=== PATIENT | female | born 1945 | race Caucasian/White ===

== ENCOUNTER 2017-12-10 13:58 | Emergency (ER) | payer MEDICARE ==
[~2017-12-10] VITALS: Ht 154.9 cm; Wt 93.0 kg
[~2017-12-10 13:58] MED LIST: ALEN70TA48 PO; ATOR40TA71 PO; CHOL100046 PO; DILT180C PO; GLIM2TAB2 PO; IRBE150T27 PO; LEVO112T5 PO; METF500T7 PO; MILN50TA PO; NYSPWD TP; PIOG30TA27 PO; SOTA120T PO; WARF2TAB7 PO
[2017-12-10 13:59] VITALS: BP 159/79
== END 2017-12-10 15:53 | disposition home or self-care (01) ==
LOC: ER 13:58
DX: M79.605 Pain in left leg (principal); I25.10 Atherosclerotic heart disease of native coronary artery without angina pectoris; I48.91 Unspecified atrial fibrillation; J45.909 Unspecified asthma, uncomplicated; E78.00 Pure hypercholesterolemia, unspecified; I10 Essential (primary) hypertension; E11.9 Type 2 diabetes mellitus without complications; Z88.2 Allergy status to sulfonamides; Z88.0 Allergy status to penicillin; Z79.01 Long term (current) use of anticoagulants; Z79.84 Long term (current) use of oral hypoglycemic drugs; Z79.899 Other long term (current) drug therapy
CPT/HCPCS: 73630; 99284

== ENCOUNTER 2018-03-11 06:26 | Day surgery (SDC) | payer MEDICARE ==
[2018-03-10 11:41] LABS: BASOPHILS % (AUTO) 0.2 % (0-1); EOSINOPHILS # (AUTO) 0.1 X10'3 (0-0.9); EOSINOPHILS % (AUTO) 1.5 % (0-6); HEMATOCRIT 36.2 % (35.0-45.0); HEMOGLOBIN 11.9 g/dl (12.0-16.0); LYMPHOCYTES # (AUTO) 1.6 X10'3 (1.1-4.8); MEAN CORPUSCULAR HEMOGLOBIN 27.2 PG (27.0-31.0); MEAN CORPUSCULAR VOLUME 82.5 FL (78-98); MEAN PLATELET VOLUME 8.2 FL (7.4-10.4); MONOCYTES # (AUTO) 0.7 X10'3 (0-0.9); MONOCYTES % (AUTO) 8.1 % (2-12); NEUTROPHILS # (AUTO) 6.1 X10'3 (1.8-7.7); NEUTROPHILS % (AUTO) 71.2 % (42-75); PLATELET COUNT 297 X10'3 (140-440); RED BLOOD COUNT 4.38 X10'6 (4.20-5.60); RED CELL DISTRIBUTION WIDTH 16.7 % (11.5-14.5); WHITE BLOOD COUNT 8.6 X10'3 (4.5-11.0)
[2018-03-10 11:51] LABS: ALBUMIN 3.4 G/DL (3.4-5.0); ANION GAP 10 (8-16); BLOOD UREA NITROGEN 27 MG/DL (7-18); CALCIUM 9.5 MG/DL (8.5-10.1); CHLORIDE 104 MMOL/L (99-107); CREATININE 1.23 MG/DL (0.40-0.90); GLUCOSE 276 MG/DL (70-104); POTASSIUM 4.5 MMOL/L (3.5-5.1); SODIUM 139 MMOL/L (135-145); TOTAL CARBON DIOXIDE 25.3 MMOL/L (24-32); eGFR 43 ML/MIN
[2018-03-11] VITALS (14 sets, daily range): BP systolic 148–194; BP diastolic 55–139
[~2018-03-11] VITALS: Ht 154.9 cm; Wt 114.8 kg
[~2018-03-11 06:26] MED LIST changes: -PIOG30TA27 PO; +PIOG30TA71 PO; +WARF-65 PO; -WARF2TAB7 PO
[2018-03-11] MEDS ORDERED: MIDAZolam 5mg/ml 2ml vial IV ONE (06:45)
[2018-03-11] MEDS ORDERED: morphine 10mg/ml inj. IV ONE (06:45)
[2018-03-11] MEDS ORDERED: diphenhydrAMINE 25mg capsule PO ONE (06:45)
[2018-03-11] MEDS ORDERED: LORazepam 0.5 MG tablet PO ONE (06:45)
[2018-03-11] MEDS ORDERED: normal saline 1000ml 1,000 ML IV SCH (06:45)
[2018-03-11] MEDS ORDERED: PIOG30TA10 PO (07:52)
[2018-03-11] MEDS ORDERED: OMEP20TA23 PO (07:56)
== END 2018-03-11 11:40 | disposition home or self-care (01) ==
LOC: SSTAY O 06:26
PROVIDERS: ATTEND Internal Medicine Cardiovascular Disease
DX: I08.3 Combined rheumatic disorders of mitral, aortic and tricuspid valves (principal); I48.0 Paroxysmal atrial fibrillation; E78.5 Hyperlipidemia, unspecified; E11.9 Type 2 diabetes mellitus without complications; G47.33 Obstructive sleep apnea (adult) (pediatric); I11.0 Hypertensive heart disease with heart failure; I50.9 Heart failure, unspecified; I25.10 Atherosclerotic heart disease of native coronary artery without angina pectoris; E66.9 Obesity, unspecified; M19.90 Unspecified osteoarthritis, unspecified site; K21.9 Gastro-esophageal reflux disease without esophagitis; F32.9 Major depressive disorder, single episode, unspecified; J45.998 Other asthma; Z68.42 Body mass index [BMI] 45.0-49.9, adult; Z79.01 Long term (current) use of anticoagulants; Z90.49 Acquired absence of other specified parts of digestive tract; Z95.5 Presence of coronary angioplasty implant and graft; Z90.89 Acquired absence of other organs; Z90.710 Acquired absence of both cervix and uterus; Z79.84 Long term (current) use of oral hypoglycemic drugs; Z88.0 Allergy status to penicillin; Z88.2 Allergy status to sulfonamides; Z88.1 Allergy status to other antibiotic agents; Z87.891 Personal history of nicotine dependence; Z88.8 Allergy status to other drugs, medicaments and biological substances; Z79.899 Other long term (current) drug therapy; Z98.890 Other specified postprocedural states
CPT/HCPCS: 36415; 80048; 82948; 85025; 85610; 93005; 93312; J2250; J2270; J7030; A4620

== ENCOUNTER 2018-04-01 08:51 | Day surgery (SDC) | payer MEDICARE ==
[~2018-04-01 08:51] MED LIST changes: +OMEP20TA23 PO; +PIOG30TA10 PO; -PIOG30TA71 PO
[2018-04-01] MEDS ORDERED: AMIO200T40 PO (10:02)
[2018-04-01] MEDS ORDERED: INSU100C10 SQ (10:03)
[2018-04-01] MEDS ORDERED: LIDOcaine 2% 5ml jelly ONE ×2 (10:08→10:19)
== END 2018-04-01 11:00 | disposition home or self-care (01) ==
LOC: WOUND CARE 08:51
PROVIDERS: ATTEND Surgery
DX: T21.34XA Burn of third degree of lower back, initial encounter (principal); T21.23XA Burn of second degree of upper back, initial encounter; T31.0 Burns involving less than 10% of body surface; L98.492 Non-pressure chronic ulcer of skin of other sites with fat layer exposed; I25.10 Atherosclerotic heart disease of native coronary artery without angina pectoris; K21.9 Gastro-esophageal reflux disease without esophagitis; I11.0 Hypertensive heart disease with heart failure; I50.9 Heart failure, unspecified; E78.5 Hyperlipidemia, unspecified; E66.9 Obesity, unspecified; G47.33 Obstructive sleep apnea (adult) (pediatric); J45.998 Other asthma; I48.0 Paroxysmal atrial fibrillation; M19.90 Unspecified osteoarthritis, unspecified site; F32.9 Major depressive disorder, single episode, unspecified; Z90.710 Acquired absence of both cervix and uterus; Z90.89 Acquired absence of other organs; Z90.49 Acquired absence of other specified parts of digestive tract; Z68.42 Body mass index [BMI] 45.0-49.9, adult; Z79.01 Long term (current) use of anticoagulants; Z79.84 Long term (current) use of oral hypoglycemic drugs; Z79.899 Other long term (current) drug therapy; Z98.890 Other specified postprocedural states; Z87.891 Personal history of nicotine dependence; Z95.5 Presence of coronary angioplasty implant and graft; X08.8XXA Exposure to other specified smoke, fire and flames, initial encounter; Y93.89 Activity, other specified; Y92.89 Other specified places as the place of occurrence of the external cause; Y99.8 Other external cause status
CPT/HCPCS: 36416; 82948; 97597; A6021; A6196; A6212; A6213; A6222

== ENCOUNTER 2018-04-06 21:34 | Inpatient (IN) | payer MEDICARE ==
[~2018-04-06] VITALS: Ht 154.9 cm; Wt 112.5 kg
[~2018-04-06 21:34] MED LIST changes: +AMIO200T40 PO; +INSU100C10 SQ; +LEVO25TA2 PO; -SOTA120T PO; +SYN0.112T PO; -WARF-65 PO
[2018-04-06] MEDS ORDERED: cloNIDine 0.1 mg tablet PO ONE (21:55)
[2018-04-06 22:20] LABS: BASOPHILS % (AUTO) 0.4 % (0-1); EOSINOPHILS # (AUTO) 0.2 X10'3 (0-0.9); EOSINOPHILS % (AUTO) 2.5 % (0-6); HEMATOCRIT 30.7 % (35.0-45.0); HEMOGLOBIN 9.8 g/dl (12.0-16.0); LYMPHOCYTES # (AUTO) 1.2 X10'3 (1.1-4.8); LYMPHOCYTES % (AUTO) 15.9 % (21-51); MEAN CORPUSCULAR HEMOGLOBIN 26.5 PG (27.0-31.0); MEAN CORPUSCULAR HGB CONC 31.8 % (33.0-36.5); MEAN CORPUSCULAR VOLUME 83.2 FL (78-98); MEAN PLATELET VOLUME 6.8 FL (7.4-10.4); MONOCYTES % (AUTO) 13.2 % (2-12); PLATELET COUNT 351 X10'3 (140-440); RED BLOOD COUNT 3.69 X10'6 (4.20-5.60); RED CELL DISTRIBUTION WIDTH 18.3 % (11.5-14.5); WHITE BLOOD COUNT 7.3 X10'3 (4.5-11.0)
[2018-04-06 22:30] LABS: INR 1.1 INR; PARTIAL THROMBOPLASTIN TIME 24 SECONDS (22-32); PROTHROMBIN TIME 11.4 SECONDS (9.0-12.0)
[2018-04-06 22:37] LABS: ALANINE AMINOTRANSFERASE 35 U/L (12-78); ALBUMIN 2.9 G/DL (3.4-5.0); ALBUMIN/GLOBULIN RATIO 0.7 (1.1-1.5); ALKALINE PHOSPHATASE 99 IU/L (46-116); ANION GAP 11 (8-16); ASPARTATE AMINO TRANSFERASE 25 U/L (10-37); BILIRUBIN,TOTAL 0.6 MG/DL (0.1-1.0); BLOOD UREA NITROGEN 19 MG/DL (7-18); BUN/CREATININE RATIO 15.3 (6.6-38.0); CALCIUM 9.1 MG/DL (8.5-10.1); CHLORIDE 104 MMOL/L (99-107); CREATININE 1.24 MG/DL (0.40-0.90); GLUCOSE 139 MG/DL (70-104); POTASSIUM 4.1 MMOL/L (3.5-5.1); SODIUM 139 MMOL/L (135-145); TOTAL CARBON DIOXIDE 24.1 MMOL/L (24-32); TOTAL PROTEIN 6.9 G/DL (6.4-8.2); eGFR 43 ML/MIN
[2018-04-06] MEDS ORDERED: furosemide 20MG tablet PO ONE (22:55)
[2018-04-07] MEDS ORDERED: potassium Cl 20 mEq SR tablet PO PRN ×2 (01:25)
[2018-04-07] MEDS ORDERED: ondansetron/PF 4mg/2ml inj IV PRN (01:25)
[2018-04-07] MEDS ORDERED: MESSAGE TO PHARMACY PO ONE (01:25)
[2018-04-07] MEDS ORDERED: glucagon, human recombinant 1mg kit SUBCUT PRN (01:25)
[2018-04-07] MEDS ORDERED: magnesium hydroxide 30ml (MOM) UD suspension PO PRN (01:25)
[2018-04-07] MEDS ORDERED: dextrose 50%-water 50ml dispensing syringe IV PRN ×2 (01:25)
[2018-04-07] MEDS ORDERED: HYDROcodone/acetaminophen 5mg/325mg tablet PO PRN (01:25)
[2018-04-07] MEDS ORDERED: acetaminophen 325mg tablet PO PRN ×2 (01:25)
[2018-04-07] MEDS ORDERED: ipratropium/albuterol 3ml nebule NEB PRN (01:25)
[2018-04-07] MEDS ORDERED: magnesium 1gm/100ml D5W IVPB 100 ML IV PRN (01:25)
[2018-04-07] MEDS ORDERED: mag hydrox/Alum hydrox/simeth 30ml oral suspension PO PRN (01:25)
[2018-04-07] MEDS ORDERED: dextrose ORAL solution 15 GM/59 ML bottle PO PRN ×2 (01:25)
[2018-04-07] MEDS ORDERED: magnesium 4gm in 100ml NS 100 ML IV PRN (01:25)
[2018-04-07] MEDS ORDERED: HYDROcodone/acetaminophen 10/325mg tab PO PRN (01:25)
[2018-04-07] MEDS ORDERED: potassium Cl 40MEQ/NS 500ml 500 ML IV PRN ×2 (01:25)
[2018-04-07 01:55] LABS: HEMOGLOBIN A1C 9.2 % (4.5-6.2)
[2018-04-07 02:20] VITALS: BP 157/83
[2018-04-07 07:00] VITALS: BP 120/46
[2018-04-07] MEDS: atorvastatin 20mg tablet PO SCH (07:47)
[2018-04-07] MEDS: pantoprazole 40mg Tablet.DR PO SCH (07:47)
[2018-04-07] MEDS: vitamin D (cholecalciferol) 1,000 unit tablet PO SCH (07:47)
[2018-04-07] MEDS: losartan 50mg tablet PO SCH (07:47)
[2018-04-07] MEDS: diltiazem CD 180mg cap (once-daily) PO SCH ×2 (07:47→19:53)
[2018-04-07] MEDS: enoxaparin 40mg/0.4ml syringe SQ SCH (07:48)
[2018-04-07] MEDS ORDERED: amiodarone 200mg tablet PO SCH (08:00)
[2018-04-07] MEDS: K and/or MAG REPLACEMENT MC SCH (08:00)
[2018-04-07] MEDS: MILNACIPRAN HCL 50 MG TABLET PO SCH ×3 (08:00→22:00)
[2018-04-07] MEDS ORDERED: levoTHYROXINE 112mcg tablet PO SCH (08:00)
[2018-04-07] MEDS ORDERED: levoTHYROXINE 25mcg tablet PO SCH (08:00)
[2018-04-07 11:00] VITALS: BP 141/80
[2018-04-07] MEDS ORDERED: amiodarone 150mg/dext, iso-os 100 ML IV ONE (11:35)
[2018-04-07] MEDS: amiodarone 200mg tablet PO SCH ×2 (12:39→22:00)
[2018-04-07] MEDS: aspirin 325mg tablet, delayed-release (Ecotrin) PO SCH (13:30)
[2018-04-07] MEDS: furosemide 40mg/4ml inj IV SCH ×2 (13:50→19:53)
[2018-04-07] MEDS ORDERED: MILN50TA PO (14:25)
[2018-04-07 15:00] VITALS: BP 128/70
[2018-04-07] MEDS: ipratropium/albuterol 3ml nebule NEB SCH ×2 (15:08→20:55)
[2018-04-07] MEDS: methylPREDNISolone sod succ 125mg/2ml vial IV SCH ×2 (16:48→23:36)
[2018-04-07] MEDS: potassium Cl 20 mEq SR tablet PO SCH (16:49)
[2018-04-07 19:00] VITALS: BP 134/69
[2018-04-07] MEDS ORDERED: LORazepam 0.5 MG tablet PO PRN (19:40)
[2018-04-07] MEDS: insulin glargine (Lantus) pen - multi-dose SQ SCH (22:04)
[2018-04-07 23:00] VITALS: BP 147/83
[2018-04-08] MEDS: ipratropium/albuterol 3ml nebule NEB SCH ×2 (02:00→08:00)
[2018-04-08 03:00] VITALS: BP 127/68
[2018-04-08 05:47] LABS: BASOPHILS % (AUTO) 0 % (0-1); EOSINOPHILS # (AUTO) 0.1 X10'3 (0-0.9); EOSINOPHILS % (AUTO) 1.3 % (0-6); HEMATOCRIT 33.5 % (35.0-45.0); LYMPHOCYTES # (AUTO) 0.4 X10'3 (1.1-4.8); LYMPHOCYTES % (AUTO) 5.6 % (21-51); MEAN CORPUSCULAR HGB CONC 32.8 % (33.0-36.5); MEAN CORPUSCULAR VOLUME 82.4 FL (78-98); MEAN PLATELET VOLUME 7.1 FL (7.4-10.4); MONOCYTES # (AUTO) 0.1 X10'3 (0-0.9); MONOCYTES % (AUTO) 0.8 % (2-12); NEUTROPHILS # (AUTO) 5.8 X10'3 (1.8-7.7); NEUTROPHILS % (AUTO) 92.3 % (42-75); PLATELET COUNT 343 X10'3 (140-440); RED BLOOD COUNT 4.06 X10'6 (4.20-5.60); RED CELL DISTRIBUTION WIDTH 17.3 % (11.5-14.5); WHITE BLOOD COUNT 6.3 X10'3 (4.5-11.0)
[2018-04-08 05:50] LABS: ALANINE AMINOTRANSFERASE 36 U/L (12-78); ALBUMIN/GLOBULIN RATIO 0.7 (1.1-1.5); ALKALINE PHOSPHATASE 106 IU/L (46-116); ANION GAP 9 (8-16); ASPARTATE AMINO TRANSFERASE 23 U/L (10-37); BILIRUBIN,TOTAL 0.7 MG/DL (0.1-1.0); BLOOD UREA NITROGEN 17 MG/DL (7-18); BUN/CREATININE RATIO 13.7 (6.6-38.0); CALCIUM 9.1 MG/DL (8.5-10.1); CHLORIDE 100 MMOL/L (99-107); CHOLESTEROL 148 MG/DL (0-200); CREATININE 1.24 MG/DL (0.40-0.90); GLUCOSE 338 MG/DL (70-104); HDL CHOLESTEROL 75 MG/DL (35-60); LDL CHOLESTEROL 62 MG/DL (50-100); MAGNESIUM 1.6 MG/DL (1.5-2.4); POTASSIUM 3.7 MMOL/L (3.5-5.1); SODIUM 136 MMOL/L (135-145); TOTAL CARBON DIOXIDE 27.1 MMOL/L (24-32); TOTAL PROTEIN 7.5 G/DL (6.4-8.2); TRIGLYCERIDES 44 MG/DL (20-135); eGFR 43 ML/MIN
[2018-04-08 07:00] VITALS: BP 145/91
[2018-04-08] MEDS: furosemide 40mg/4ml inj IV SCH ×2 (07:14→19:16)
[2018-04-08] MEDS: MILNACIPRAN HCL 50 MG TABLET PO SCH ×3 (07:15→19:25)
[2018-04-08] MEDS: aspirin 325mg tablet, delayed-release (Ecotrin) PO SCH (07:15)
[2018-04-08] MEDS: diltiazem CD 180mg cap (once-daily) PO SCH (07:15)
[2018-04-08] MEDS: methylPREDNISolone sod succ 125mg/2ml vial IV SCH ×2 (07:15→19:17)
[2018-04-08] MEDS: enoxaparin 40mg/0.4ml syringe SQ SCH (07:15)
[2018-04-08] MEDS: pantoprazole 40mg Tablet.DR PO SCH (07:15)
[2018-04-08] MEDS: atorvastatin 20mg tablet PO SCH (07:16)
[2018-04-08] MEDS: amiodarone 200mg tablet PO SCH ×2 (07:16→19:17)
[2018-04-08] MEDS: vitamin D (cholecalciferol) 1,000 unit tablet PO SCH (07:16)
[2018-04-08] MEDS: potassium Cl 20 mEq SR tablet PO SCH ×2 (07:16→17:59)
[2018-04-08] MEDS: levoTHYROXINE 75mcg tablet PO SCH (07:16)
[2018-04-08] MEDS: losartan 50mg tablet PO SCH (07:16)
[2018-04-08] MEDS: K and/or MAG REPLACEMENT MC SCH (08:00)
[2018-04-08] MEDS: insulin Lispro (HumaLOG) vial - multi-dose SQ SCH ×4 (08:35→22:58)
[2018-04-08] MEDS: carVEDilol 12.5mg tablet PO SCH ×2 (10:49→19:19)
[2018-04-08 11:00] VITALS: BP 131/75
[2018-04-08] MEDS ORDERED: ipratropium/albuterol 3ml nebule NEB PRN (11:15)
[2018-04-08] MEDS ORDERED: polyethylene glycol 3350 17gm powd pack PO PRN ×2 (12:10→12:16)
[2018-04-08 15:00] VITALS: BP 120/60
[2018-04-08 19:00] VITALS: BP 133/78
[2018-04-08] MEDS: insulin glargine (Lantus) pen - multi-dose SQ SCH (22:59)
[2018-04-08 23:00] VITALS: BP 111/63
[2018-04-08] MEDS: apixaban 5mg tablet PO SCH (23:02)
[2018-04-09 03:00] VITALS: BP 117/66
[2018-04-09 06:00] VITALS: BP 118/66
[2018-04-09 06:03] LABS: BASOPHILS % (AUTO) 0 % (0-1); EOSINOPHILS % (AUTO) 0 % (0-6); HEMATOCRIT 31.7 % (35.0-45.0); HEMOGLOBIN 10.3 g/dl (12.0-16.0); LYMPHOCYTES # (AUTO) 0.5 X10'3 (1.1-4.8); LYMPHOCYTES % (AUTO) 3.3 % (21-51); MEAN CORPUSCULAR HEMOGLOBIN 26.8 PG (27.0-31.0); MEAN CORPUSCULAR HGB CONC 32.4 % (33.0-36.5); MEAN CORPUSCULAR VOLUME 82.6 FL (78-98); MEAN PLATELET VOLUME 7.1 FL (7.4-10.4); MONOCYTES # (AUTO) 0.5 X10'3 (0-0.9); MONOCYTES % (AUTO) 3.6 % (2-12); NEUTROPHILS % (AUTO) 93.1 % (42-75); PLATELET COUNT 331 X10'3 (140-440); RED BLOOD COUNT 3.84 X10'6 (4.20-5.60); RED CELL DISTRIBUTION WIDTH 17.1 % (11.5-14.5); WHITE BLOOD COUNT 15.1 X10'3 (4.5-11.0)
[2018-04-09 06:35] LABS: ALANINE AMINOTRANSFERASE 30 U/L (12-78); ALBUMIN/GLOBULIN RATIO 0.7 (1.1-1.5); ALKALINE PHOSPHATASE 92 IU/L (46-116); ANION GAP 8 (8-16); ASPARTATE AMINO TRANSFERASE 20 U/L (10-37); BILIRUBIN,TOTAL 0.5 MG/DL (0.1-1.0); BLOOD UREA NITROGEN 29 MG/DL (7-18); BUN/CREATININE RATIO 18.8 (6.6-38.0); CALCIUM 9.7 MG/DL (8.5-10.1); CHLORIDE 98 MMOL/L (99-107); CREATININE 1.54 MG/DL (0.40-0.90); GLUCOSE 322 MG/DL (70-104); MAGNESIUM 1.6 MG/DL (1.5-2.4); POTASSIUM 3.9 MMOL/L (3.5-5.1); SODIUM 135 MMOL/L (135-145); TOTAL CARBON DIOXIDE 28.6 MMOL/L (24-32); TOTAL PROTEIN 7.2 G/DL (6.4-8.2); eGFR 33 ML/MIN
[2018-04-09] MEDS: K and/or MAG REPLACEMENT MC SCH (08:00)
[2018-04-09] MEDS: insulin Lispro (HumaLOG) vial - multi-dose SQ SCH ×4 (09:31→22:18)
[2018-04-09] MEDS: atorvastatin 20mg tablet PO SCH (09:34)
[2018-04-09] MEDS: carVEDilol 12.5mg tablet PO SCH ×2 (09:34→20:18)
[2018-04-09] MEDS: aspirin 325mg tablet, delayed-release (Ecotrin) PO SCH (09:35)
[2018-04-09] MEDS: losartan 50mg tablet PO SCH (09:35)
[2018-04-09] MEDS: amiodarone 200mg tablet PO SCH ×2 (09:35→20:17)
[2018-04-09] MEDS: levoTHYROXINE 75mcg tablet PO SCH (09:36)
[2018-04-09] MEDS: vitamin D (cholecalciferol) 1,000 unit tablet PO SCH (09:37)
[2018-04-09] MEDS: pantoprazole 40mg Tablet.DR PO SCH (09:37)
[2018-04-09] MEDS: apixaban 5mg tablet PO SCH ×2 (09:38→20:18)
[2018-04-09] MEDS: potassium Cl 20 mEq SR tablet PO SCH ×2 (09:39→16:52)
[2018-04-09] MEDS: MILNACIPRAN HCL 50 MG TABLET PO SCH ×3 (09:39→20:19)
[2018-04-09] MEDS: methylPREDNISolone sod succ 125mg/2ml vial IV SCH (09:41)
[2018-04-09] MEDS: furosemide 40mg/4ml inj IV SCH (09:41)
[2018-04-09 11:00] VITALS: BP 116/61
[2018-04-09] MEDS: diltiazem CD 120mg capsule (once-daily) PO SCH (12:47)
[2018-04-09 15:00] VITALS: BP 115/70
[2018-04-09 19:00] VITALS: BP 135/47
[2018-04-09] MEDS: furosemide 20 MG/2 ML vial IV SCH (20:17)
[2018-04-09] MEDS ORDERED: insulin glargine (Lantus) pen - multi-dose SQ SCH (21:00)
[2018-04-09 23:00] VITALS: BP 121/63
[2018-04-10 03:00] VITALS: BP 124/67
[2018-04-10 05:47] LABS: BASOPHILS % (AUTO) 0 % (0-1); EOSINOPHILS % (AUTO) 0.2 % (0-6); HEMATOCRIT 33.2 % (35.0-45.0); LYMPHOCYTES # (AUTO) 0.5 X10'3 (1.1-4.8); LYMPHOCYTES % (AUTO) 3.2 % (21-51); MEAN CORPUSCULAR HEMOGLOBIN 27.2 PG (27.0-31.0); MEAN CORPUSCULAR HGB CONC 33.1 % (33.0-36.5); MEAN CORPUSCULAR VOLUME 82.1 FL (78-98); MEAN PLATELET VOLUME 7.5 FL (7.4-10.4); MONOCYTES # (AUTO) 0.6 X10'3 (0-0.9); MONOCYTES % (AUTO) 3.7 % (2-12); NEUTROPHILS # (AUTO) 14.8 X10'3 (1.8-7.7); NEUTROPHILS % (AUTO) 92.9 % (42-75); PLATELET COUNT 337 X10'3 (140-440); RED BLOOD COUNT 4.04 X10'6 (4.20-5.60); RED CELL DISTRIBUTION WIDTH 16.3 % (11.5-14.5); WHITE BLOOD COUNT 15.9 X10'3 (4.5-11.0)
[2018-04-10 06:00] VITALS: BP 117/66
[2018-04-10 06:54] LABS: ALANINE AMINOTRANSFERASE 34 U/L (12-78); ALBUMIN/GLOBULIN RATIO 0.7 (1.1-1.5); ALKALINE PHOSPHATASE 86 IU/L (46-116); ANION GAP 7 (8-16); ASPARTATE AMINO TRANSFERASE 21 U/L (10-37); BILIRUBIN,TOTAL 0.5 MG/DL (0.1-1.0); BLOOD UREA NITROGEN 41 MG/DL (7-18); CALCIUM 9.7 MG/DL (8.5-10.1); CHLORIDE 98 MMOL/L (99-107); CREATININE 1.78 MG/DL (0.40-0.90); GLUCOSE 273 MG/DL (70-104); MAGNESIUM 1.7 MG/DL (1.5-2.4); POTASSIUM 4.1 MMOL/L (3.5-5.1); SODIUM 134 MMOL/L (135-145); TOTAL CARBON DIOXIDE 29.5 MMOL/L (24-32); TOTAL PROTEIN 7.2 G/DL (6.4-8.2); eGFR 28 ML/MIN
[2018-04-10] MEDS: apixaban 5mg tablet PO SCH (07:57)
[2018-04-10] MEDS: atorvastatin 20mg tablet PO SCH (07:57)
[2018-04-10] MEDS: amiodarone 200mg tablet PO SCH (07:59)
[2018-04-10] MEDS: levoTHYROXINE 75mcg tablet PO SCH (07:59)
[2018-04-10] MEDS: K and/or MAG REPLACEMENT MC SCH (08:00)
[2018-04-10] MEDS ORDERED: aspirin 81mg tablet.DR PO SCH (08:00)
[2018-04-10] MEDS: pantoprazole 40mg Tablet.DR PO SCH (08:00)
[2018-04-10] MEDS: potassium Cl 20 mEq SR tablet PO SCH (08:00)
[2018-04-10] MEDS: diltiazem CD 120mg capsule (once-daily) PO SCH (08:00)
[2018-04-10] MEDS: carVEDilol 12.5mg tablet PO SCH (08:01)
[2018-04-10] MEDS: vitamin D (cholecalciferol) 1,000 unit tablet PO SCH (08:01)
[2018-04-10] MEDS: MILNACIPRAN HCL 50 MG TABLET PO SCH ×2 (08:02→12:36)
[2018-04-10] MEDS: furosemide 20 MG/2 ML vial IV SCH (08:02)
[2018-04-10] MEDS ORDERED: prednisone 10mg tablet PO SCH (08:30)
[2018-04-10] MEDS: insulin Lispro (HumaLOG) vial - multi-dose SQ SCH ×2 (09:13→13:21)
[2018-04-10] MEDS ORDERED: diltiazem CD 180mg cap (once-daily) PO SCH (12:15)
[2018-04-10] MEDS ORDERED: APIX5TAB3 PO (12:24)
[2018-04-10] MEDS ORDERED: DILT180C PO (12:24)
[2018-04-10] MEDS ORDERED: CARV-50 PO (12:24)
[2018-04-10] MEDS ORDERED: AMIO200T40 PO (12:24)
[2018-04-10] MEDS ORDERED: diltiazem SR 60mg capsule (twice daily) PO ONE (12:25)
[2018-04-10] MEDS ORDERED: PRED10TA23 PO (14:41)
[2018-04-11] MEDS ORDERED: diltiazem CD 180mg cap (once-daily) PO SCH (08:00)
== END 2018-04-10 15:35 | disposition home health service (06) | DRG 291 ==
LOC: ER 21:35 → ED HOLD 04-07 01:24 → PCU 3S 04-07 02:10
PROVIDERS: ADMIT Family Medicine; ATTEND Internal Medicine
DX: I11.0 Hypertensive heart disease with heart failure (principal); J96.01 Acute respiratory failure with hypoxia; J45.901 Unspecified asthma with (acute) exacerbation; Z68.42 Body mass index [BMI] 45.0-49.9, adult; E03.9 Hypothyroidism, unspecified; E78.00 Pure hypercholesterolemia, unspecified; E78.5 Hyperlipidemia, unspecified; G47.33 Obstructive sleep apnea (adult) (pediatric); I16.0 Hypertensive urgency; I25.10 Atherosclerotic heart disease of native coronary artery without angina pectoris; I48.0 Paroxysmal atrial fibrillation; I27.20 Pulmonary hypertension, unspecified; E66.9 Obesity, unspecified; M19.90 Unspecified osteoarthritis, unspecified site; I08.1 Rheumatic disorders of both mitral and tricuspid valves; I50.33 Acute on chronic diastolic (congestive) heart failure; E11.9 Type 2 diabetes mellitus without complications; M79.7 Fibromyalgia; M81.0 Age-related osteoporosis without current pathological fracture; T38.0X5A Adverse effect of glucocorticoids and synthetic analogues, initial encounter; Z95.5 Presence of coronary angioplasty implant and graft; Z90.49 Acquired absence of other specified parts of digestive tract; Z90.710 Acquired absence of both cervix and uterus; Z90.722 Acquired absence of ovaries, bilateral; Z79.01 Long term (current) use of anticoagulants; Z79.890 Hormone replacement therapy; Z79.84 Long term (current) use of oral hypoglycemic drugs; Z88.2 Allergy status to sulfonamides; Z88.0 Allergy status to penicillin; Z88.1 Allergy status to other antibiotic agents; Z88.8 Allergy status to other drugs, medicaments and biological substances; Z82.3 Family history of stroke; Z82.49 Family history of ischemic heart disease and other diseases of the circulatory system; Z83.3 Family history of diabetes mellitus; Y92.89 Other specified places as the place of occurrence of the external cause
CPT/HCPCS: 36415; 71045; 80053; 80061; 82948; 83036; 83735; 83880; 84145; 84443; 84484; 85025; 85610; 85730; 87070; 93005; 93306; 93970; 94640; 94760; 99285; A4649; A6196; A6212; A6222; A6257; A6258; A6449; J0282; J1650; J1815; J1940; J2930; J7030; J7512

== ENCOUNTER 2018-04-23 12:06 | Emergency (ER) | payer MEDICARE ==
[~2018-04-23] VITALS: Ht 154.9 cm; Wt 117.7 kg
[~2018-04-23 12:06] MED LIST changes: +APIX5TAB3 PO; +CARV-50 PO; -LEVO112T5 PO; -NYSPWD TP; +PRED10TA23 PO
[2018-04-23 12:20] VITALS: BP 126/96
== END 2018-04-23 14:45 | disposition home or self-care (01) ==
LOC: ER 12:07
DX: S92.352A Displaced fracture of fifth metatarsal bone, left foot, initial encounter for closed fracture (principal); R20.0 Anesthesia of skin; I48.91 Unspecified atrial fibrillation; I25.10 Atherosclerotic heart disease of native coronary artery without angina pectoris; E78.00 Pure hypercholesterolemia, unspecified; I10 Essential (primary) hypertension; J45.909 Unspecified asthma, uncomplicated; E11.9 Type 2 diabetes mellitus without complications; M79.7 Fibromyalgia; Z95.5 Presence of coronary angioplasty implant and graft; Z88.0 Allergy status to penicillin; Z88.2 Allergy status to sulfonamides; Z88.1 Allergy status to other antibiotic agents; Z79.899 Other long term (current) drug therapy; W19.XXXA Unspecified fall, initial encounter; Y93.89 Activity, other specified; Y92.89 Other specified places as the place of occurrence of the external cause; Y99.9 Unspecified external cause status
CPT/HCPCS: 73630; 93005; 99284; L3260; L4360

== ENCOUNTER 2018-05-12 11:34 | Emergency (ER) | payer MEDICARE ==
[~2018-05-12] VITALS: Ht 154.9 cm; Wt 120.9 kg
[~2018-05-12 11:34] MED LIST changes: -ALEN70TA48 PO; +HYDR-569 PO; -METF500T7 PO; -PRED10TA23 PO
[2018-05-12] MEDS ORDERED: ondansetron 4mg rapidly disintigrating tab PO ONE (12:35)
[2018-05-12] MEDS ORDERED: HYDROcodone/acetaminophen 5mg/325mg tablet PO ONE (12:35)
[2018-05-12] MEDS ORDERED: ketorolac trometh. 30mg/ml inj. IM ONE (12:35)
[2018-05-12 13:45] VITALS: BP 138/79
[2018-05-12] MEDS ORDERED: HYDR-3965 PO (14:07)
[2018-05-12] MEDS ORDERED: ONDA8TAB9 PO (14:07)
== END 2018-05-12 14:43 | disposition home or self-care (01) ==
LOC: ER 11:34
DX: G57.02 Lesion of sciatic nerve, left lower limb (principal); I48.91 Unspecified atrial fibrillation; I25.10 Atherosclerotic heart disease of native coronary artery without angina pectoris; E78.00 Pure hypercholesterolemia, unspecified; I10 Essential (primary) hypertension; J45.909 Unspecified asthma, uncomplicated; E11.9 Type 2 diabetes mellitus without complications; Z95.1 Presence of aortocoronary bypass graft; Z88.1 Allergy status to other antibiotic agents; Z88.0 Allergy status to penicillin; Z88.2 Allergy status to sulfonamides; Z88.8 Allergy status to other drugs, medicaments and biological substances
CPT/HCPCS: 73502; 93005; 96372; 99284; J1885

== ENCOUNTER 2018-05-20 16:51 | Emergency (ER) | payer MEDICARE ==
[~2018-05-20] VITALS: Ht 154.9 cm; Wt 123.0 kg
[~2018-05-20 16:51] MED LIST changes: +HYDR-3965 PO; +ONDA8TAB9 PO
[2018-05-20 17:47] LABS: BASOPHILS % (AUTO) 0.1 % (0-1); EOSINOPHILS # (AUTO) 0.1 X10'3 (0-0.9); EOSINOPHILS % (AUTO) 1.6 % (0-6); HEMOGLOBIN 8.7 g/dl (12.0-16.0); LYMPHOCYTES # (AUTO) 0.8 X10'3 (1.1-4.8); LYMPHOCYTES % (AUTO) 8.9 % (21-51); MEAN CORPUSCULAR HEMOGLOBIN 25.9 PG (27.0-31.0); MEAN CORPUSCULAR HGB CONC 32.3 % (33.0-36.5); MEAN PLATELET VOLUME 6.2 FL (7.4-10.4); MONOCYTES # (AUTO) 1.5 X10'3 (0-0.9); NEUTROPHILS # (AUTO) 6.7 X10'3 (1.8-7.7); NEUTROPHILS % (AUTO) 73.4 % (42-75); PLATELET COUNT 442 X10'3 (140-440); RED BLOOD COUNT 3.38 X10'6 (4.20-5.60); RED CELL DISTRIBUTION WIDTH 19.8 % (11.5-14.5); WHITE BLOOD COUNT 9.1 X10'3 (4.5-11.0)
[2018-05-20 17:55] LABS: INR 1.3 INR; PARTIAL THROMBOPLASTIN TIME 32 SECONDS (22-32); PROTHROMBIN TIME 13.2 SECONDS (9.0-12.0)
[2018-05-20 18:01] LABS: ALANINE AMINOTRANSFERASE 18 U/L (12-78); ALBUMIN 2.7 G/DL (3.4-5.0); ALBUMIN/GLOBULIN RATIO 0.6 (1.1-1.5); ALKALINE PHOSPHATASE 136 IU/L (46-116); ANION GAP 10 (8-16); ASPARTATE AMINO TRANSFERASE 26 U/L (10-37); BILIRUBIN,TOTAL 0.8 MG/DL (0.1-1.0); BLOOD UREA NITROGEN 45 MG/DL (7-18); BUN/CREATININE RATIO 18.8 (6.6-38.0); CHLORIDE 101 MMOL/L (99-107); GLUCOSE 199 MG/DL (70-104); POTASSIUM 5.3 MMOL/L (3.5-5.1); SODIUM 133 MMOL/L (135-145); TOTAL CARBON DIOXIDE 22.2 MMOL/L (24-32); TOTAL PROTEIN 7.1 G/DL (6.4-8.2); eGFR 20 ML/MIN
[2018-05-20 18:15] LABS: ANISOCYTOSIS 2+; BURR CELLS FEW; PLATELET ESTIMATE INCREASED; SCHISTOCYTES FEW
[2018-05-20 18:16] LABS: ACANTHOCYTES FEW
[2018-05-20] MEDS ORDERED: furosemide 20MG tablet PO ONE (18:35)
[2018-05-20 19:08] VITALS: BP 136/61
== END 2018-05-20 19:12 | disposition home or self-care (01) ==
LOC: ER 16:52
DX: I11.0 Hypertensive heart disease with heart failure (principal); I50.9 Heart failure, unspecified; I48.91 Unspecified atrial fibrillation; I25.10 Atherosclerotic heart disease of native coronary artery without angina pectoris; E78.00 Pure hypercholesterolemia, unspecified; J45.909 Unspecified asthma, uncomplicated; E11.9 Type 2 diabetes mellitus without complications; Z98.61 Coronary angioplasty status; Z88.0 Allergy status to penicillin; Z88.2 Allergy status to sulfonamides; Z88.1 Allergy status to other antibiotic agents; Z79.01 Long term (current) use of anticoagulants; Z79.899 Other long term (current) drug therapy
CPT/HCPCS: 36415; 71045; 80053; 84484; 85025; 85610; 85730; 93005; 99285

== ENCOUNTER 2018-05-22 21:57 | Inpatient (IN) | payer MEDICARE ==
[~2018-05-22] VITALS: Ht 154.9 cm; Wt 120.0 kg
[2018-05-22] MEDS ORDERED: ALEN40TA2 PO (22:16)
[2018-05-22] MEDS ORDERED: METF500T PO (22:16)
[2018-05-22 22:20] LABS: BASOPHILS % (AUTO) 0.3 % (0-1); EOSINOPHILS # (AUTO) 0.1 X10'3 (0-0.9); EOSINOPHILS % (AUTO) 1.4 % (0-6); HEMATOCRIT 28.1 % (35.0-45.0); LYMPHOCYTES # (AUTO) 1.3 X10'3 (1.1-4.8); LYMPHOCYTES % (AUTO) 14.1 % (21-51); MEAN CORPUSCULAR HEMOGLOBIN 25.4 PG (27.0-31.0); MEAN CORPUSCULAR VOLUME 79.4 FL (78-98); MONOCYTES # (AUTO) 1.3 X10'3 (0-0.9); MONOCYTES % (AUTO) 14.4 % (2-12); NEUTROPHILS # (AUTO) 6.5 X10'3 (1.8-7.7); NEUTROPHILS % (AUTO) 69.8 % (42-75); PLATELET COUNT 416 X10'3 (140-440); RED BLOOD COUNT 3.54 X10'6 (4.20-5.60); RED CELL DISTRIBUTION WIDTH 20.2 % (11.5-14.5); WHITE BLOOD COUNT 9.3 X10'3 (4.5-11.0)
[2018-05-22] MEDS ORDERED: diltiazem-NS 100mg/100ml 100 ML IV SCH (22:20)
[2018-05-22 22:32] LABS: INR 1.5 INR; PARTIAL THROMBOPLASTIN TIME 34 SECONDS (22-32); PROTHROMBIN TIME 15.1 SECONDS (9.0-12.0)
[2018-05-22 22:34] LABS: ALANINE AMINOTRANSFERASE 21 U/L (12-78); ALBUMIN 2.6 G/DL (3.4-5.0); ALBUMIN/GLOBULIN RATIO 0.6 (1.1-1.5); ALKALINE PHOSPHATASE 133 IU/L (46-116); ANION GAP 11 (8-16); ASPARTATE AMINO TRANSFERASE 25 U/L (10-37); BILIRUBIN,TOTAL 0.9 MG/DL (0.1-1.0); BLOOD UREA NITROGEN 33 MG/DL (7-18); BUN/CREATININE RATIO 16.8 (6.6-38.0); CALCIUM 8.9 MG/DL (8.5-10.1); CHLORIDE 103 MMOL/L (99-107); CREATININE 1.97 MG/DL (0.40-0.90); GLUCOSE 217 MG/DL (70-104); POTASSIUM 4.4 MMOL/L (3.5-5.1); SODIUM 136 MMOL/L (135-145); TOTAL CARBON DIOXIDE 21.8 MMOL/L (24-32); TOTAL PROTEIN 7.2 G/DL (6.4-8.2); eGFR 25 ML/MIN
[2018-05-22] MEDS ORDERED: diltiazem 5mg/ml 5ml inj. IV STA (22:34)
[2018-05-22] MEDS ORDERED: metoprolol tartrate 50mg tablet PO ONE (23:45)
[2018-05-23] VITALS (23 sets, daily range): BP systolic 88–135; BP diastolic 53–87
[2018-05-23] MEDS ORDERED: mag hydrox/Alum hydrox/simeth 30ml oral suspension PO PRN (00:30)
[2018-05-23] MEDS ORDERED: diphenhydrAMINE 25mg capsule PO PRN (00:30)
[2018-05-23] MEDS ORDERED: diphenhydrAMINE 50 mg/ml inj IV PRN (00:30)
[2018-05-23] MEDS ORDERED: metoclopramide 5 mg/ml inj IV PRN (00:30)
[2018-05-23] MEDS ORDERED: acetaminophen 325mg tablet PO PRN ×2 (00:30)
[2018-05-23] MEDS ORDERED: acetaminophen 650mg rectal suppository RC PRN (00:30)
[2018-05-23] MEDS ORDERED: magnesium hydroxide 30ml (MOM) UD suspension PO PRN (00:30)
[2018-05-23] MEDS ORDERED: ondansetron/PF 4mg/2ml inj IV PRN (00:30)
[2018-05-23] MEDS ORDERED: HYDROcodone/acetaminophen 10/325mg tab PO PRN (00:30)
[2018-05-23] MEDS ORDERED: HYDROmorphone 1 mg/ml syringe IV PRN ×2 (00:30)
[2018-05-23] MEDS ORDERED: morphine 2 MG/ML inj. syringe IV PRN ×2 (00:30)
[2018-05-23] MEDS ORDERED: dextrose ORAL solution 15 GM/59 ML bottle PO PRN ×2 (01:00)
[2018-05-23] MEDS ORDERED: glucagon, human recombinant 1mg kit SUBCUT PRN (01:00)
[2018-05-23] MEDS: diltiazem-NS 100mg/100ml 100 ML IV SCH ×5 (01:00→18:40)
[2018-05-23] MEDS ORDERED: dextrose 50%-water 50ml dispensing syringe IV PRN ×2 (01:00)
[2018-05-23] MEDS ORDERED: MESSAGE TO PHARMACY PO ONE (01:00)
[2018-05-23 01:51] LABS: HEMOGLOBIN A1C 8.9 % (4.5-6.2)
[2018-05-23] MEDS: MILNACIPRAN HCL 50 MG TABLET PO SCH ×3 (08:00→19:49)
[2018-05-23] MEDS ORDERED: ALENDRONATE SODIUM PO SCH (08:00)
[2018-05-23] MEDS: furosemide 10 MG/1 ML 10ml inj IV SCH (08:39)
[2018-05-23] MEDS: atorvastatin 20mg tablet PO SCH (08:40)
[2018-05-23] MEDS: pantoprazole 40mg Tablet.DR PO SCH (08:40)
[2018-05-23] MEDS: apixaban 5mg tablet PO SCH ×2 (08:41→19:48)
[2018-05-23] MEDS: docusate sod 100mg capsule PO SCH ×2 (08:41→19:47)
[2018-05-23] MEDS: levoTHYROXINE 25mcg tablet PO SCH (08:41)
[2018-05-23] MEDS: levoTHYROXINE 112mcg tablet PO SCH (08:41)
[2018-05-23] MEDS: amiodarone 200mg tablet PO SCH ×2 (08:43→19:48)
[2018-05-23] MEDS: losartan 50mg tablet PO SCH (08:54)
[2018-05-23] MEDS: insulin Lispro (HumaLOG) vial - multi-dose SQ SCH ×2 (09:57→18:59)
[2018-05-23] MEDS ORDERED: amiodarone 150mg/dext, iso-os 100 ML IV ONE ×2 (12:50→22:35)
[2018-05-23] MEDS: HYDROcodone/acetaminophen 5mg/325mg tablet PO PRN (19:48)
[2018-05-23] MEDS ORDERED: temazepam 15mg capsule PO PRN (21:00)
[2018-05-24] VITALS (27 sets, daily range): BP systolic 89–138; BP diastolic 45–97
[2018-05-24] MEDS: amiodarone/D5 360MG/200ML BAG 200 ML IV SCH ×4 (01:33→18:24)
[2018-05-24 05:36] LABS: BASOPHILS % (AUTO) 0 % (0-1); EOSINOPHILS # (AUTO) 0.3 X10'3 (0-0.9); EOSINOPHILS % (AUTO) 3.1 % (0-6); HEMATOCRIT 27.1 % (35.0-45.0); HEMOGLOBIN 8.7 g/dl (12.0-16.0); LYMPHOCYTES # (AUTO) 1.4 X10'3 (1.1-4.8); LYMPHOCYTES % (AUTO) 16.3 % (21-51); MEAN CORPUSCULAR HEMOGLOBIN 25.8 PG (27.0-31.0); MEAN CORPUSCULAR HGB CONC 32.3 % (33.0-36.5); MEAN CORPUSCULAR VOLUME 79.9 FL (78-98); MEAN PLATELET VOLUME 6.4 FL (7.4-10.4); MONOCYTES # (AUTO) 1.3 X10'3 (0-0.9); MONOCYTES % (AUTO) 15.7 % (2-12); NEUTROPHILS # (AUTO) 5.4 X10'3 (1.8-7.7); NEUTROPHILS % (AUTO) 64.9 % (42-75); PLATELET COUNT 395 X10'3 (140-440); RED BLOOD COUNT 3.39 X10'6 (4.20-5.60); WHITE BLOOD COUNT 8.3 X10'3 (4.5-11.0)
[2018-05-24 06:34] LABS: ALANINE AMINOTRANSFERASE 11 U/L (12-78); ALBUMIN 2.3 G/DL (3.4-5.0); ALBUMIN/GLOBULIN RATIO 0.5 (1.1-1.5); ALKALINE PHOSPHATASE 119 IU/L (46-116); ANION GAP 11 (8-16); ASPARTATE AMINO TRANSFERASE 18 U/L (10-37); BILIRUBIN,TOTAL 0.8 MG/DL (0.1-1.0); BLOOD UREA NITROGEN 30 MG/DL (7-18); BUN/CREATININE RATIO 15.6 (6.6-38.0); CALCIUM 8.7 MG/DL (8.5-10.1); CHLORIDE 104 MMOL/L (99-107); CHOL/HDL RATIO 3.3 (0.00-4.99); CHOLESTEROL 108 MG/DL (0-200); CREATININE 1.92 MG/DL (0.40-0.90); GLUCOSE 157 MG/DL (70-104); HDL CHOLESTEROL 33 MG/DL (35-60); LDL CHOLESTEROL 57 MG/DL (50-100); POTASSIUM 4.4 MMOL/L (3.5-5.1); SODIUM 139 MMOL/L (135-145); TOTAL CARBON DIOXIDE 23.6 MMOL/L (24-32); TOTAL PROTEIN 6.6 G/DL (6.4-8.2); TRIGLYCERIDES 62 MG/DL (20-135); eGFR 26 ML/MIN
[2018-05-24 06:48] LABS: ANISOCYTOSIS 2+; PLATELET ESTIMATE NORMAL
[2018-05-24 06:52] LABS: ELLIPTOCYTES 1+; MICROCYTOSIS 1+; POIKILOCYTOSIS 1+; POLYCHROMASIA 1+
[2018-05-24 06:53] LABS: BURR CELLS 1+
[2018-05-24] MEDS: losartan 50mg tablet PO SCH ×2 (08:00→08:27)
[2018-05-24] MEDS: furosemide 10 MG/1 ML 10ml inj IV SCH ×2 (08:13→19:48)
[2018-05-24] MEDS: MILNACIPRAN HCL 50 MG TABLET PO SCH ×3 (08:13→19:58)
[2018-05-24] MEDS: levoTHYROXINE 25mcg tablet PO SCH (08:13)
[2018-05-24] MEDS: atorvastatin 20mg tablet PO SCH (08:14)
[2018-05-24] MEDS: amiodarone 200mg tablet PO SCH ×2 (08:14→19:14)
[2018-05-24] MEDS: levoTHYROXINE 112mcg tablet PO SCH (08:14)
[2018-05-24] MEDS: pantoprazole 40mg Tablet.DR PO SCH (08:14)
[2018-05-24] MEDS: docusate sod 100mg capsule PO SCH ×2 (08:14→19:14)
[2018-05-24] MEDS: apixaban 5mg tablet PO SCH ×2 (08:14→19:14)
[2018-05-24] MEDS: insulin Lispro (HumaLOG) vial - multi-dose SQ SCH ×3 (10:00→19:13)
[2018-05-24] MEDS: HYDROcodone/acetaminophen 5mg/325mg tablet PO PRN (19:58)
[2018-05-25] VITALS (30 sets, daily range): BP systolic 94–130; BP diastolic 47–100
[2018-05-25] MEDS: amiodarone/D5 360MG/200ML BAG 200 ML IV SCH ×4 (01:41→19:37)
[2018-05-25 04:29] LABS: BASOPHILS % (AUTO) 0.2 % (0-1); EOSINOPHILS # (AUTO) 0.3 X10'3 (0-0.9); EOSINOPHILS % (AUTO) 3.4 % (0-6); HEMATOCRIT 27.7 % (35.0-45.0); HEMOGLOBIN 8.9 g/dl (12.0-16.0); LYMPHOCYTES # (AUTO) 1.5 X10'3 (1.1-4.8); MEAN CORPUSCULAR HEMOGLOBIN 25.9 PG (27.0-31.0); MEAN CORPUSCULAR HGB CONC 32.2 % (33.0-36.5); MEAN CORPUSCULAR VOLUME 80.4 FL (78-98); MEAN PLATELET VOLUME 6.3 FL (7.4-10.4); MONOCYTES # (AUTO) 1.5 X10'3 (0-0.9); MONOCYTES % (AUTO) 16.3 % (2-12); NEUTROPHILS # (AUTO) 5.8 X10'3 (1.8-7.7); NEUTROPHILS % (AUTO) 64.1 % (42-75); PLATELET COUNT 424 X10'3 (140-440); RED BLOOD COUNT 3.44 X10'6 (4.20-5.60); RED CELL DISTRIBUTION WIDTH 19.8 % (11.5-14.5); WHITE BLOOD COUNT 9.1 X10'3 (4.5-11.0)
[2018-05-25 04:50] LABS: ALANINE AMINOTRANSFERASE 18 U/L (12-78); ALBUMIN 2.2 G/DL (3.4-5.0); ALBUMIN/GLOBULIN RATIO 0.5 (1.1-1.5); ANION GAP 9 (8-16); ASPARTATE AMINO TRANSFERASE 22 U/L (10-37); BILIRUBIN,TOTAL 0.6 MG/DL (0.1-1.0); BLOOD UREA NITROGEN 32 MG/DL (7-18); CALCIUM 8.6 MG/DL (8.5-10.1); CHLORIDE 103 MMOL/L (99-107); CREATININE 2.13 MG/DL (0.40-0.90); GLUCOSE 156 MG/DL (70-104); POTASSIUM 4.5 MMOL/L (3.5-5.1); SODIUM 137 MMOL/L (135-145); TOTAL CARBON DIOXIDE 24.8 MMOL/L (24-32); TOTAL PROTEIN 6.5 G/DL (6.4-8.2); eGFR 23 ML/MIN
[2018-05-25 04:51] LABS: ALKALINE PHOSPHATASE 118 IU/L (46-116)
[2018-05-25 05:04] LABS: ANISOCYTOSIS 2+; PLATELET ESTIMATE NORMAL
[2018-05-25 05:06] LABS: ACANTHOCYTES 1+; POLYCHROMASIA FEW; TARGET CELLS FEW
[2018-05-25 05:08] LABS: BURR CELLS FEW; POIKILOCYTOSIS 1+
[2018-05-25] MEDS: furosemide 10 MG/1 ML 10ml inj IV SCH ×2 (08:00→19:37)
[2018-05-25 08:17] LABS: MAGNESIUM 1.6 MG/DL (1.5-2.4)
[2018-05-25] MEDS: MILNACIPRAN HCL 50 MG TABLET PO SCH ×3 (08:21→20:08)
[2018-05-25] MEDS: pantoprazole 40mg Tablet.DR PO SCH (08:21)
[2018-05-25] MEDS: docusate sod 100mg capsule PO SCH ×2 (08:21→19:36)
[2018-05-25] MEDS: levoTHYROXINE 25mcg tablet PO SCH (08:21)
[2018-05-25] MEDS: amiodarone 200mg tablet PO SCH ×2 (08:21→19:36)
[2018-05-25] MEDS: losartan 50mg tablet PO SCH (08:21)
[2018-05-25] MEDS: atorvastatin 20mg tablet PO SCH (08:21)
[2018-05-25] MEDS: apixaban 5mg tablet PO SCH ×2 (08:21→19:36)
[2018-05-25] MEDS: levoTHYROXINE 112mcg tablet PO SCH (08:21)
[2018-05-25 08:34] LABS: TRIIODOTHYRONINE (T3) 59 ng/dL (71-180)
[2018-05-25] MEDS ORDERED: morphine 10mg/ml inj. IV ONE ×2 (09:20→14:00)
[2018-05-25] MEDS ORDERED: MIDAZolam 1mg/ml 10ml vial IV ONE ×2 (09:20→14:00)
[2018-05-25] MEDS: insulin Lispro (HumaLOG) vial - multi-dose SQ SCH ×3 (10:06→19:51)
[2018-05-25] MEDS ORDERED: amiodarone 150mg/dext, iso-os 100 ML IV ONE (14:30)
[2018-05-25] MEDS ORDERED: diltiazem CD 180mg cap (once-daily) PO ONE (20:00)
[2018-05-26] MEDS: amiodarone/D5 360MG/200ML BAG 200 ML IV SCH ×4 (01:57→20:09)
[2018-05-26 03:00] VITALS: BP 123/60
[2018-05-26 05:51] LABS: BASOPHILS % (AUTO) 0.1 % (0-1); EOSINOPHILS # (AUTO) 0.3 X10'3 (0-0.9); EOSINOPHILS % (AUTO) 2.8 % (0-6); HEMATOCRIT 27.4 % (35.0-45.0); HEMOGLOBIN 8.8 g/dl (12.0-16.0); LYMPHOCYTES # (AUTO) 1.3 X10'3 (1.1-4.8); LYMPHOCYTES % (AUTO) 12.3 % (21-51); MEAN CORPUSCULAR HEMOGLOBIN 25.6 PG (27.0-31.0); MEAN CORPUSCULAR HGB CONC 32.3 % (33.0-36.5); MEAN CORPUSCULAR VOLUME 79.3 FL (78-98); MEAN PLATELET VOLUME 6.3 FL (7.4-10.4); MONOCYTES # (AUTO) 1.5 X10'3 (0-0.9); MONOCYTES % (AUTO) 14.2 % (2-12); NEUTROPHILS # (AUTO) 7.4 X10'3 (1.8-7.7); NEUTROPHILS % (AUTO) 70.6 % (42-75); PLATELET COUNT 402 X10'3 (140-440); RED BLOOD COUNT 3.45 X10'6 (4.20-5.60); RED CELL DISTRIBUTION WIDTH 20.1 % (11.5-14.5); WHITE BLOOD COUNT 10.5 X10'3 (4.5-11.0)
[2018-05-26 06:00] VITALS: BP 109/62
[2018-05-26 06:35] LABS: ALANINE AMINOTRANSFERASE 18 U/L (12-78); ALBUMIN 2.3 G/DL (3.4-5.0); ALBUMIN/GLOBULIN RATIO 0.5 (1.1-1.5); ALKALINE PHOSPHATASE 115 IU/L (46-116); ANION GAP 13 (8-16); ASPARTATE AMINO TRANSFERASE 24 U/L (10-37); BILIRUBIN,TOTAL 0.6 MG/DL (0.1-1.0); BLOOD UREA NITROGEN 36 MG/DL (7-18); BUN/CREATININE RATIO 14.7 (6.6-38.0); CHLORIDE 101 MMOL/L (99-107); CREATININE 2.45 MG/DL (0.40-0.90); GLUCOSE 115 MG/DL (70-104); POTASSIUM 4.2 MMOL/L (3.5-5.1); SODIUM 137 MMOL/L (135-145); TOTAL CARBON DIOXIDE 22.8 MMOL/L (24-32); TOTAL PROTEIN 6.6 G/DL (6.4-8.2); eGFR 19 ML/MIN
[2018-05-26 07:07] LABS: ANISOCYTOSIS 2+; PLATELET ESTIMATE NORMAL; POIKILOCYTOSIS 1+
[2018-05-26 07:08] LABS: ELLIPTOCYTES 1+; HYPOCHROMASIA 1+; MICROCYTOSIS 1+
[2018-05-26 07:09] LABS: BURR CELLS 1+
[2018-05-26] MEDS: MILNACIPRAN HCL 50 MG TABLET PO SCH ×3 (07:56→20:59)
[2018-05-26] MEDS: docusate sod 100mg capsule PO SCH ×2 (07:57→20:59)
[2018-05-26] MEDS: pantoprazole 40mg Tablet.DR PO SCH (07:57)
[2018-05-26] MEDS: furosemide 10 MG/1 ML 10ml inj IV SCH (07:57)
[2018-05-26] MEDS: atorvastatin 20mg tablet PO SCH (07:57)
[2018-05-26] MEDS: amiodarone 200mg tablet PO SCH ×2 (07:57→20:58)
[2018-05-26] MEDS: losartan 50mg tablet PO SCH (07:57)
[2018-05-26] MEDS: levoTHYROXINE 25mcg tablet PO SCH (07:57)
[2018-05-26] MEDS: diltiazem CD 180mg cap (once-daily) PO SCH (07:57)
[2018-05-26] MEDS: apixaban 5mg tablet PO SCH ×2 (07:57→20:59)
[2018-05-26] MEDS: levoTHYROXINE 112mcg tablet PO SCH (07:58)
[2018-05-26] MEDS: insulin Lispro (HumaLOG) vial - multi-dose SQ SCH ×2 (08:15→13:51)
[2018-05-26 11:00] VITALS: BP 110/62
[2018-05-26 15:00] VITALS: BP 117/57
[2018-05-26 19:00] VITALS: BP 109/58
[2018-05-26] MEDS ORDERED: metoprolol tartrate 1mg/ml inj IV PRN (19:20)
[2018-05-26] MEDS: furosemide 20 MG/2 ML vial IV SCH (20:59)
[2018-05-26 23:00] VITALS: BP 119/54
[2018-05-27] MEDS: amiodarone/D5 360MG/200ML BAG 200 ML IV SCH ×3 (02:13→13:12)
[2018-05-27 03:00] VITALS: BP 129/61
[2018-05-27 05:12] LABS: BASOPHILS % (AUTO) 0.5 % (0-1); EOSINOPHILS # (AUTO) 0.3 X10'3 (0-0.9); EOSINOPHILS % (AUTO) 3.6 % (0-6); HEMATOCRIT 27.7 % (35.0-45.0); LYMPHOCYTES # (AUTO) 1.3 X10'3 (1.1-4.8); LYMPHOCYTES % (AUTO) 13.3 % (21-51); MEAN CORPUSCULAR HEMOGLOBIN 25.5 PG (27.0-31.0); MEAN CORPUSCULAR HGB CONC 32.3 % (33.0-36.5); MEAN CORPUSCULAR VOLUME 78.8 FL (78-98); MEAN PLATELET VOLUME 6.5 FL (7.4-10.4); MONOCYTES # (AUTO) 1.5 X10'3 (0-0.9); MONOCYTES % (AUTO) 15.6 % (2-12); NEUTROPHILS # (AUTO) 6.4 X10'3 (1.8-7.7); PLATELET COUNT 439 X10'3 (140-440); RED BLOOD COUNT 3.52 X10'6 (4.20-5.60); RED CELL DISTRIBUTION WIDTH 19.8 % (11.5-14.5); WHITE BLOOD COUNT 9.6 X10'3 (4.5-11.0)
[2018-05-27 05:39] LABS: ALANINE AMINOTRANSFERASE 49 U/L (12-78); ALBUMIN 2.4 G/DL (3.4-5.0); ALBUMIN/GLOBULIN RATIO 0.5 (1.1-1.5); ALKALINE PHOSPHATASE 124 IU/L (46-116); ANION GAP 11 (8-16); ASPARTATE AMINO TRANSFERASE 25 U/L (10-37); BILIRUBIN,TOTAL 0.6 MG/DL (0.1-1.0); BLOOD UREA NITROGEN 40 MG/DL (7-18); BUN/CREATININE RATIO 16.5 (6.6-38.0); CALCIUM 8.8 MG/DL (8.5-10.1); CHLORIDE 100 MMOL/L (99-107); CREATININE 2.42 MG/DL (0.40-0.90); GLUCOSE 153 MG/DL (70-104); SODIUM 135 MMOL/L (135-145); TOTAL CARBON DIOXIDE 23.7 MMOL/L (24-32); eGFR 20 ML/MIN
[2018-05-27 07:00] VITALS: BP 113/52
[2018-05-27] MEDS: furosemide 20 MG/2 ML vial IV SCH (07:38)
[2018-05-27] MEDS: levoTHYROXINE 112mcg tablet PO SCH (07:38)
[2018-05-27] MEDS: atorvastatin 20mg tablet PO SCH (07:38)
[2018-05-27] MEDS: apixaban 5mg tablet PO SCH ×2 (07:38→20:18)
[2018-05-27] MEDS: amiodarone 200mg tablet PO SCH ×2 (07:38→20:19)
[2018-05-27] MEDS: MILNACIPRAN HCL 50 MG TABLET PO SCH ×3 (07:38→20:17)
[2018-05-27] MEDS: losartan 50mg tablet PO SCH (07:39)
[2018-05-27] MEDS: levoTHYROXINE 25mcg tablet PO SCH (07:39)
[2018-05-27] MEDS: diltiazem CD 180mg cap (once-daily) PO SCH (07:39)
[2018-05-27] MEDS: docusate sod 100mg capsule PO SCH ×2 (07:39→20:18)
[2018-05-27] MEDS: pantoprazole 40mg Tablet.DR PO SCH (07:39)
[2018-05-27] MEDS: insulin Lispro (HumaLOG) vial - multi-dose SQ SCH ×3 (08:08→19:01)
[2018-05-27 11:00] VITALS: BP 102/50
[2018-05-27 15:00] VITALS: BP 108/48
[2018-05-27 18:00] VITALS: BP 110/49
[2018-05-27] MEDS: metoprolol tartrate 25mg tablet PO SCH (20:21)
[2018-05-27 22:00] VITALS: BP 130/57
[2018-05-28 02:00] VITALS: BP 119/54
[2018-05-28] MEDS: HYDROcodone/acetaminophen 5mg/325mg tablet PO PRN ×2 (02:22→20:21)
[2018-05-28 06:14] LABS: ALANINE AMINOTRANSFERASE 19 U/L (12-78); ALBUMIN 2.3 G/DL (3.4-5.0); ALBUMIN/GLOBULIN RATIO 0.5 (1.1-1.5); ALKALINE PHOSPHATASE 110 IU/L (46-116); ANION GAP 11 (8-16); ASPARTATE AMINO TRANSFERASE 23 U/L (10-37); BILIRUBIN,TOTAL 0.7 MG/DL (0.1-1.0); BLOOD UREA NITROGEN 41 MG/DL (7-18); CALCIUM 8.9 MG/DL (8.5-10.1); CHLORIDE 101 MMOL/L (99-107); CREATININE 2.56 MG/DL (0.40-0.90); GLUCOSE 128 MG/DL (70-104); POTASSIUM 4.1 MMOL/L (3.5-5.1); SODIUM 137 MMOL/L (135-145); TOTAL CARBON DIOXIDE 25.1 MMOL/L (24-32); TOTAL PROTEIN 6.5 G/DL (6.4-8.2); eGFR 18 ML/MIN
[2018-05-28 06:31] LABS: BASOPHILS % (AUTO) 0.1 % (0-1); EOSINOPHILS # (AUTO) 0.3 X10'3 (0-0.9); EOSINOPHILS % (AUTO) 3.7 % (0-6); HEMATOCRIT 26.2 % (35.0-45.0); HEMOGLOBIN 8.2 g/dl (12.0-16.0); MEAN CORPUSCULAR HGB CONC 31.4 % (33.0-36.5); MEAN CORPUSCULAR VOLUME 79.5 FL (78-98); MEAN PLATELET VOLUME 6.7 FL (7.4-10.4); MONOCYTES # (AUTO) 1.4 X10'3 (0-0.9); MONOCYTES % (AUTO) 15.8 % (2-12); NEUTROPHILS % (AUTO) 69.4 % (42-75); PLATELET COUNT 379 X10'3 (140-440); RED BLOOD COUNT 3.29 X10'6 (4.20-5.60); RED CELL DISTRIBUTION WIDTH 19.7 % (11.5-14.5); WHITE BLOOD COUNT 8.6 X10'3 (4.5-11.0)
[2018-05-28 07:07] VITALS: BP 80/38
[2018-05-28 07:10] VITALS: BP 102/47
[2018-05-28] MEDS: MILNACIPRAN HCL 50 MG TABLET PO SCH ×3 (09:07→20:23)
[2018-05-28] MEDS: levoTHYROXINE 112mcg tablet PO SCH (09:07)
[2018-05-28] MEDS: apixaban 5mg tablet PO SCH ×2 (09:07→20:21)
[2018-05-28] MEDS: losartan 50mg tablet PO SCH (09:08)
[2018-05-28] MEDS: metoprolol tartrate 25mg tablet PO SCH ×2 (09:08→20:20)
[2018-05-28] MEDS: atorvastatin 20mg tablet PO SCH (09:08)
[2018-05-28] MEDS: docusate sod 100mg capsule PO SCH ×2 (09:09→20:23)
[2018-05-28] MEDS: levoTHYROXINE 25mcg tablet PO SCH (09:09)
[2018-05-28] MEDS: diltiazem CD 180mg cap (once-daily) PO SCH (09:09)
[2018-05-28] MEDS: amiodarone 200mg tablet PO SCH ×2 (09:10→20:22)
[2018-05-28] MEDS: pantoprazole 40mg Tablet.DR PO SCH (09:11)
[2018-05-28] MEDS: insulin Lispro (HumaLOG) vial - multi-dose SQ SCH ×3 (09:16→19:14)
[2018-05-28 09:29] LABS: ACANTHOCYTES FEW; ANISOCYTOSIS 2+; HYPOCHROMASIA 1+; PLATELET ESTIMATE NORMAL; SCHISTOCYTES FEW
[2018-05-28 11:00] VITALS: BP 109/51
[2018-05-28 15:00] VITALS: BP 127/62
[2018-05-29 02:00] VITALS: BP 104/64
[2018-05-29 06:36] VITALS: BP 162/74
[2018-05-29] MEDS: levoTHYROXINE 112mcg tablet PO SCH (08:43)
[2018-05-29] MEDS: levoTHYROXINE 25mcg tablet PO SCH (08:43)
[2018-05-29] MEDS: pantoprazole 40mg Tablet.DR PO SCH (08:43)
[2018-05-29] MEDS: MILNACIPRAN HCL 50 MG TABLET PO SCH ×3 (08:43→20:42)
[2018-05-29] MEDS: losartan 50mg tablet PO SCH (08:44)
[2018-05-29] MEDS: diltiazem CD 180mg cap (once-daily) PO SCH (08:44)
[2018-05-29] MEDS: atorvastatin 20mg tablet PO SCH (08:44)
[2018-05-29] MEDS: docusate sod 100mg capsule PO SCH ×2 (08:44→20:39)
[2018-05-29] MEDS: amiodarone 200mg tablet PO SCH ×2 (08:44→20:39)
[2018-05-29] MEDS: apixaban 5mg tablet PO SCH ×2 (08:45→20:39)
[2018-05-29] MEDS: metoprolol tartrate 25mg tablet PO SCH ×2 (08:45→20:39)
[2018-05-29] MEDS: insulin Lispro (HumaLOG) vial - multi-dose SQ SCH ×3 (08:52→19:32)
[2018-05-29 11:00] VITALS: BP 109/61
[2018-05-29 15:00] VITALS: BP 100/58
[2018-05-29 18:00] VITALS: BP 116/68
[2018-05-29] MEDS: HYDROcodone/acetaminophen 5mg/325mg tablet PO PRN (20:57)
[2018-05-29 22:00] VITALS: BP 110/56
[2018-05-30 02:00] VITALS: BP 91/50
[2018-05-30 06:00] VITALS: BP 107/58
[2018-05-30] MEDS: metoprolol tartrate 25mg tablet PO SCH ×2 (08:46→20:16)
[2018-05-30] MEDS: atorvastatin 20mg tablet PO SCH (08:46)
[2018-05-30] MEDS: levoTHYROXINE 25mcg tablet PO SCH (08:46)
[2018-05-30] MEDS: losartan 50mg tablet PO SCH (08:46)
[2018-05-30] MEDS: MILNACIPRAN HCL 50 MG TABLET PO SCH ×3 (08:46→20:55)
[2018-05-30] MEDS: amiodarone 200mg tablet PO SCH ×2 (08:46→20:15)
[2018-05-30] MEDS: levoTHYROXINE 112mcg tablet PO SCH (08:46)
[2018-05-30] MEDS: pantoprazole 40mg Tablet.DR PO SCH (08:46)
[2018-05-30] MEDS: apixaban 5mg tablet PO SCH ×2 (08:46→20:15)
[2018-05-30] MEDS: docusate sod 100mg capsule PO SCH ×2 (08:46→20:15)
[2018-05-30] MEDS: diltiazem CD 180mg cap (once-daily) PO SCH (08:46)
[2018-05-30] MEDS: insulin Lispro (HumaLOG) vial - multi-dose SQ SCH ×3 (08:55→18:44)
[2018-05-30 11:00] VITALS: BP 121/55
[2018-05-30 15:00] VITALS: BP 120/67
[2018-05-30] MEDS: HYDROcodone/acetaminophen 5mg/325mg tablet PO PRN (20:16)
[2018-05-30 23:00] VITALS: BP 122/67
[2018-05-31 03:00] VITALS: BP 95/56
[2018-05-31 04:00] VITALS: BP 118/54
[2018-05-31 05:37] LABS: ALANINE AMINOTRANSFERASE 18 U/L (12-78); ALBUMIN 2.4 G/DL (3.4-5.0); ALBUMIN/GLOBULIN RATIO 0.5 (1.1-1.5); ALKALINE PHOSPHATASE 113 IU/L (46-116); ANION GAP 12 (8-16); ASPARTATE AMINO TRANSFERASE 25 U/L (10-37); BILIRUBIN,TOTAL 0.7 MG/DL (0.1-1.0); BLOOD UREA NITROGEN 30 MG/DL (7-18); BUN/CREATININE RATIO 16.5 (6.6-38.0); CALCIUM 9.5 MG/DL (8.5-10.1); CHLORIDE 102 MMOL/L (99-107); CREATININE 1.82 MG/DL (0.40-0.90); GLUCOSE 120 MG/DL (70-104); POTASSIUM 3.7 MMOL/L (3.5-5.1); SODIUM 139 MMOL/L (135-145); TOTAL CARBON DIOXIDE 25.1 MMOL/L (24-32); TOTAL PROTEIN 6.9 G/DL (6.4-8.2); eGFR 27 ML/MIN
[2018-05-31 06:00] VITALS: BP 117/63
[2018-05-31] MEDS: levoTHYROXINE 25mcg tablet PO SCH (07:46)
[2018-05-31] MEDS: atorvastatin 20mg tablet PO SCH (07:46)
[2018-05-31] MEDS: levoTHYROXINE 112mcg tablet PO SCH (07:46)
[2018-05-31] MEDS: pantoprazole 40mg Tablet.DR PO SCH (07:47)
[2018-05-31] MEDS: apixaban 5mg tablet PO SCH (07:47)
[2018-05-31] MEDS: docusate sod 100mg capsule PO SCH (07:47)
[2018-05-31] MEDS: MILNACIPRAN HCL 50 MG TABLET PO SCH (07:47)
[2018-05-31] MEDS: losartan 50mg tablet PO SCH (07:47)
[2018-05-31] MEDS: amiodarone 200mg tablet PO SCH (07:47)
[2018-05-31] MEDS: diltiazem CD 180mg cap (once-daily) PO SCH (07:47)
[2018-05-31] MEDS: metoprolol tartrate 25mg tablet PO SCH (07:47)
[2018-05-31] MEDS: insulin Lispro (HumaLOG) vial - multi-dose SQ SCH (09:30)
[2018-05-31 11:00] VITALS: BP 129/67
== END 2018-05-31 12:06 | disposition short-term general hospital (02) | DRG 682 ==
LOC: ER 21:58 → ED HOLD 05-23 00:28 → PCU 3S 05-23 02:00
PROVIDERS: ADMIT Family Medicine; ATTEND Family Medicine
PROC: 5A2204Z Restoration of Cardiac Rhythm, Single (ICD-10-PCS; principal; 2018-05-25)
DX: N17.9 Acute kidney failure, unspecified (principal); I50.33 Acute on chronic diastolic (congestive) heart failure; I13.0 Hypertensive heart and chronic kidney disease with heart failure and stage 1 through stage 4 chronic kidney disease, or unspecified chronic kidney disease; Z68.43 Body mass index [BMI] 50.0-59.9, adult; I48.0 Paroxysmal atrial fibrillation; D64.9 Anemia, unspecified; E03.9 Hypothyroidism, unspecified; E11.22 Type 2 diabetes mellitus with diabetic chronic kidney disease; E11.65 Type 2 diabetes mellitus with hyperglycemia; N18.9 Chronic kidney disease, unspecified; E66.01 Morbid (severe) obesity due to excess calories; E78.00 Pure hypercholesterolemia, unspecified; E78.5 Hyperlipidemia, unspecified; I95.9 Hypotension, unspecified; G47.33 Obstructive sleep apnea (adult) (pediatric); I25.10 Atherosclerotic heart disease of native coronary artery without angina pectoris; I27.29 Other secondary pulmonary hypertension; M25.552 Pain in left hip; J45.909 Unspecified asthma, uncomplicated; M19.90 Unspecified osteoarthritis, unspecified site; M79.7 Fibromyalgia; R09.02 Hypoxemia; Z95.5 Presence of coronary angioplasty implant and graft; I25.2 Old myocardial infarction; Z88.1 Allergy status to other antibiotic agents; Z91.041 Radiographic dye allergy status; Z88.0 Allergy status to penicillin; Z88.2 Allergy status to sulfonamides; Z91.048 Other nonmedicinal substance allergy status; Z79.899 Other long term (current) drug therapy; Z79.4 Long term (current) use of insulin; Z83.3 Family history of diabetes mellitus; Z82.49 Family history of ischemic heart disease and other diseases of the circulatory system; Z82.3 Family history of stroke
CPT/HCPCS: 36415; 71045; 80053; 80061; 82948; 83036; 83735; 83880; 84100; 84439; 84443; 84479; 84480; 84484; 85025; 85610; 85730; 86885; 86900; 86901; 87070; 92960; 93005; 96365; 97110; 97116; 97161; 97530; 99291; J0282; J1940; J2250; J2270; J3490; J7030

== ENCOUNTER 2018-06-05 20:44 | Emergency (ER) | payer MEDICARE ==
[~2018-06-05] VITALS: Ht 154.9 cm; Wt 120.4 kg
[~2018-06-05 20:44] MED LIST changes: +ALEN40TA2 PO; -CARV-50 PO; -HYDR-3965 PO; -HYDR-569 PO; +METF500T PO; -ONDA8TAB9 PO
[2018-06-05] MEDS ORDERED: ALEN70TA52 PO (21:09)
[2018-06-05] MEDS ORDERED: IRBE150T51 PO (21:09)
[2018-06-05] MEDS ORDERED: POTA10TA10 PO (21:09)
[2018-06-05] MEDS ORDERED: FURO-150 PO (21:09)
[2018-06-05] MEDS ORDERED: HYDR-4383 PO (21:09)
[2018-06-05] MEDS ORDERED: INSU100V12 SQ (21:09)
[2018-06-05] MEDS ORDERED: MILN50TA PO (21:09)
[2018-06-05] MEDS ORDERED: OMEP40CA37 PO (21:09)
[2018-06-05] MEDS ORDERED: PIOG15TA8 PO (21:09)
[2018-06-05] MEDS ORDERED: GLIM4TAB79 PO (21:09)
[2018-06-05] MEDS ORDERED: APIX5TAB3 PO (21:09)
[2018-06-05] MEDS ORDERED: INSU100V40 (21:09)
[2018-06-05] MEDS ORDERED: CARSR60C PO (21:09)
[2018-06-05] MEDS ORDERED: INSU100C10 SQ (21:09)
[2018-06-05] MEDS ORDERED: GLUC100017 PO (21:09)
[2018-06-05] MEDS ORDERED: ATOR40TA PO (21:09)
[2018-06-05] MEDS ORDERED: LEVO112T5 PO (21:09)
[2018-06-05 21:27] LABS: ALANINE AMINOTRANSFERASE 6 U/L (12-78); ALBUMIN 2.7 G/DL (3.4-5.0); ALBUMIN/GLOBULIN RATIO 0.6 (1.1-1.5); ALKALINE PHOSPHATASE 119 IU/L (46-116); ANION GAP 8 (8-16); ASPARTATE AMINO TRANSFERASE 30 U/L (10-37); BASOPHILS % (AUTO) 0.2 % (0-1); BILIRUBIN,TOTAL 0.7 MG/DL (0.1-1.0); BLOOD UREA NITROGEN 15 MG/DL (7-18); BUN/CREATININE RATIO 7.7 (6.6-38.0); CALCIUM 9.6 MG/DL (8.5-10.1); CHLORIDE 98 MMOL/L (99-107); CREATININE 1.94 MG/DL (0.40-0.90); EOSINOPHILS # (AUTO) 0.2 X10'3 (0-0.9); EOSINOPHILS % (AUTO) 1.8 % (0-6); GLUCOSE 214 MG/DL (70-104); HEMATOCRIT 28.4 % (35.0-45.0); HEMOGLOBIN 9.2 g/dl (12.0-16.0); LYMPHOCYTES # (AUTO) 1.3 X10'3 (1.1-4.8); LYMPHOCYTES % (AUTO) 12.8 % (21-51); MEAN CORPUSCULAR HEMOGLOBIN 25.9 PG (27.0-31.0); MEAN CORPUSCULAR HGB CONC 32.4 % (33.0-36.5); MEAN CORPUSCULAR VOLUME 79.8 FL (78-98); MONOCYTES # (AUTO) 1.2 X10'3 (0-0.9); MONOCYTES % (AUTO) 11.5 % (2-12); NEUTROPHILS # (AUTO) 7.7 X10'3 (1.8-7.7); NEUTROPHILS % (AUTO) 73.7 % (42-75); PLATELET COUNT 368 X10'3 (140-440); POTASSIUM 3.1 MMOL/L (3.5-5.1); RED BLOOD COUNT 3.56 X10'6 (4.20-5.60); RED CELL DISTRIBUTION WIDTH 19.4 % (11.5-14.5); SODIUM 137 MMOL/L (135-145); TOTAL CARBON DIOXIDE 31.2 MMOL/L (24-32); TOTAL PROTEIN 7.5 G/DL (6.4-8.2); WHITE BLOOD COUNT 10.4 X10'3 (4.5-11.0); eGFR 25 ML/MIN
[2018-06-05 22:00] LABS: CLARITY,URINE CLEAR (Clear); COLOR,URINE YELLOW (Yellow); GLUCOSE, URINE NEGATIVE (Neg); KETONES,URINE NEGATIVE (Neg); LEUKOCYTE ESTERASE ,URINE NEGATIVE (Neg); NITRITES, URINE NEGATIVE (Neg); OCCULT BLOOD,URINE NEGATIVE (Neg); PH,URINE 5.5 (4.8-8.0); PROTEIN,URINE NEGATIVE (Neg); UROBILINOGEN,URINE 0.2 E.U/dL (0.2-1.0)
[2018-06-05 22:09] LABS: UA COLLECTION TYPE CLN CATCH MIDSTREAM
[2018-06-05] MEDS ORDERED: normal saline 1000ML IV soln IVB ONE (22:30)
[2018-06-06] MEDS ORDERED: potassium Cl 20 mEq SR tablet PO STA ×2 (00:45)
[2018-06-06 00:54] VITALS: BP 110/51
== END 2018-06-06 01:01 | disposition home or self-care (01) ==
LOC: ER 20:44
DX: E87.6 Hypokalemia (principal); E03.9 Hypothyroidism, unspecified; I48.91 Unspecified atrial fibrillation; I25.10 Atherosclerotic heart disease of native coronary artery without angina pectoris; E78.00 Pure hypercholesterolemia, unspecified; I10 Essential (primary) hypertension; J45.909 Unspecified asthma, uncomplicated; E11.9 Type 2 diabetes mellitus without complications; M79.7 Fibromyalgia; G47.30 Sleep apnea, unspecified; Z88.0 Allergy status to penicillin; Z88.2 Allergy status to sulfonamides; Z88.1 Allergy status to other antibiotic agents; Z88.8 Allergy status to other drugs, medicaments and biological substances; Z79.4 Long term (current) use of insulin; Z79.899 Other long term (current) drug therapy; Z90.49 Acquired absence of other specified parts of digestive tract; Z98.62 Peripheral vascular angioplasty status; Z96.89 Presence of other specified functional implants
CPT/HCPCS: 36415; 71045; 80053; 81003; 84439; 84443; 84484; 85025; 93005; 99285

== ENCOUNTER 2018-06-13 12:33 | Inpatient (IN) | payer MEDICARE ==
[~2018-06-13] VITALS: Ht 154.9 cm; Wt 110.0 kg
[~2018-06-13 12:33] MED LIST changes: -ALEN40TA2 PO; +ALEN70TA52 PO; -AMIO200T40 PO; +ATOR40TA PO; -ATOR40TA71 PO; +CARSR60C PO; -CHOL100046 PO; -DILT180C PO; +FURO-150 PO; -GLIM2TAB2 PO; +GLIM4TAB79 PO; +GLUC100017 PO; +HYDR-4383 PO; +INSU100V12 SQ; +INSU100V40; -IRBE150T27 PO; +IRBE150T51 PO; +LEVO112T5 PO; -LEVO25TA2 PO; -METF500T PO; -OMEP20TA23 PO; +OMEP40CA37 PO; +PIOG15TA8 PO; -PIOG30TA10 PO; +POTA10TA10 PO; -SYN0.112T PO
[2018-06-13 13:09] LABS: BASOPHILS % (AUTO) 0.2 % (0-1); EOSINOPHILS # (AUTO) 0.2 X10'3 (0-0.9); EOSINOPHILS % (AUTO) 2.3 % (0-6); HEMATOCRIT 27.7 % (35.0-45.0); HEMOGLOBIN 8.6 g/dl (12.0-16.0); LYMPHOCYTES # (AUTO) 1.2 X10'3 (1.1-4.8); LYMPHOCYTES % (AUTO) 13.7 % (21-51); MEAN CORPUSCULAR HEMOGLOBIN 24.6 PG (27.0-31.0); MEAN CORPUSCULAR VOLUME 79.3 FL (78-98); MEAN PLATELET VOLUME 6.5 FL (7.4-10.4); MONOCYTES # (AUTO) 0.9 X10'3 (0-0.9); MONOCYTES % (AUTO) 10.3 % (2-12); NEUTROPHILS # (AUTO) 6.5 X10'3 (1.8-7.7); NEUTROPHILS % (AUTO) 73.5 % (42-75); PLATELET COUNT 388 X10'3 (140-440); RED CELL DISTRIBUTION WIDTH 20.7 % (11.5-14.5); WHITE BLOOD COUNT 8.9 X10'3 (4.5-11.0)
[2018-06-13 13:25] LABS: ALANINE AMINOTRANSFERASE 12 U/L (12-78); ALBUMIN 2.7 G/DL (3.4-5.0); ALBUMIN/GLOBULIN RATIO 0.6 (1.1-1.5); ALKALINE PHOSPHATASE 115 IU/L (46-116); ANION GAP 14 (8-16); ASPARTATE AMINO TRANSFERASE 22 U/L (10-37); BILIRUBIN,TOTAL 0.8 MG/DL (0.1-1.0); BLOOD UREA NITROGEN 14 MG/DL (7-18); BUN/CREATININE RATIO 9.2 (6.6-38.0); CALCIUM 8.7 MG/DL (8.5-10.1); CHLORIDE 101 MMOL/L (99-107); CREATININE 1.53 MG/DL (0.40-0.90); GLUCOSE 236 MG/DL (70-104); POTASSIUM 3.7 MMOL/L (3.5-5.1); SODIUM 137 MMOL/L (135-145); TOTAL CARBON DIOXIDE 22.4 MMOL/L (24-32); TOTAL PROTEIN 7.2 G/DL (6.4-8.2); eGFR 33 ML/MIN
[2018-06-13 13:32] LABS: ANISOCYTOSIS 3+; HYPOCHROMASIA 1+; INR 1.2 INR; MICROCYTOSIS 1+; PARTIAL THROMBOPLASTIN TIME 28 SECONDS (22-32); PLATELET ESTIMATE NORMAL; POIKILOCYTOSIS FEW; POLYCHROMASIA 1+; PROTHROMBIN TIME 12.7 SECONDS (9.0-12.0)
[2018-06-13] MEDS ORDERED: furosemide 10 MG/1 ML 10ml inj IV ONE (15:00)
[2018-06-13] MEDS ORDERED: potassium Cl 20 mEq SR tablet PO STA (15:53)
[2018-06-13] MEDS ORDERED: ALENDRONATE SODIUM 70 MG PO SCH (20:05)
[2018-06-13] MEDS ORDERED: HYDROcodone/acetaminophen 5mg/325mg tablet PO PRN (20:10)
[2018-06-13] MEDS ORDERED: acetaminophen 325mg tablet PO PRN (20:10)
[2018-06-13] MEDS ORDERED: diphenhydrAMINE 25mg capsule PO PRN (20:10)
[2018-06-13] MEDS ORDERED: mag hydrox/Alum hydrox/simeth 30ml oral suspension PO PRN (20:10)
[2018-06-13] MEDS ORDERED: acetaminophen 650mg rectal suppository RC PRN (20:10)
[2018-06-13] MEDS ORDERED: HYDROcodone/acetaminophen 10/325mg tab PO PRN (20:10)
[2018-06-13] MEDS ORDERED: HYDROmorphone 1 mg/ml syringe IV PRN ×2 (20:10)
[2018-06-13] MEDS ORDERED: bisacodyl 10mg suppository rectal RC PRN (20:10)
[2018-06-13] MEDS ORDERED: metoclopramide 5 mg/ml inj IV PRN (20:10)
[2018-06-13] MEDS ORDERED: ondansetron/PF 4mg/2ml inj IV PRN (20:10)
[2018-06-13] MEDS ORDERED: diphenhydrAMINE 50 mg/ml inj IV PRN (20:10)
[2018-06-13] MEDS ORDERED: magnesium hydroxide 30ml (MOM) UD suspension PO PRN (20:10)
[2018-06-13] MEDS ORDERED: morphine 2 MG/ML inj. syringe IV PRN ×2 (20:10)
[2018-06-13] MEDS ORDERED: MESSAGE TO PHARMACY PO ONE (20:20)
[2018-06-13] MEDS ORDERED: glucagon, human recombinant 1mg kit SUBCUT PRN (20:20)
[2018-06-13] MEDS ORDERED: dextrose 50%-water 50ml dispensing syringe IV PRN ×2 (20:20)
[2018-06-13] MEDS ORDERED: dextrose ORAL solution 15 GM/59 ML bottle PO PRN ×2 (20:20)
[2018-06-13] MEDS: aspirin 81mg tab.chew PO SCH (20:30)
[2018-06-13 20:41] LABS: MAGNESIUM 1.5 MG/DL (1.5-2.4)
[2018-06-13 20:45] LABS: HEMOGLOBIN A1C 8.5 % (4.5-6.2)
[2018-06-13] MEDS ORDERED: heparin 10,000 units/1 ML INJ IV PRN (21:55)
[2018-06-13] MEDS ORDERED: heparin 10,000 units/1 ML INJ IV ONE (21:55)
[2018-06-13 22:00] VITALS: BP 147/48
[2018-06-13 23:00] VITALS: BP 120/45
[2018-06-14 01:09] LABS: BASOPHILS % (AUTO) 0.4 % (0-1); EOSINOPHILS # (AUTO) 0.1 X10'3 (0-0.9); EOSINOPHILS % (AUTO) 1.2 % (0-6); HEMATOCRIT 27.6 % (35.0-45.0); HEMOGLOBIN 8.7 g/dl (12.0-16.0); LYMPHOCYTES # (AUTO) 1.4 X10'3 (1.1-4.8); LYMPHOCYTES % (AUTO) 15.9 % (21-51); MEAN CORPUSCULAR HEMOGLOBIN 25.1 PG (27.0-31.0); MEAN CORPUSCULAR HGB CONC 31.7 % (33.0-36.5); MEAN CORPUSCULAR VOLUME 79.2 FL (78-98); MEAN PLATELET VOLUME 6.9 FL (7.4-10.4); MONOCYTES % (AUTO) 11.2 % (2-12); NEUTROPHILS # (AUTO) 6.5 X10'3 (1.8-7.7); NEUTROPHILS % (AUTO) 71.3 % (42-75); PLATELET COUNT 353 X10'3 (140-440); RED BLOOD COUNT 3.48 X10'6 (4.20-5.60); RED CELL DISTRIBUTION WIDTH 19.2 % (11.5-14.5)
[2018-06-14 01:21] LABS: ABG BASE EXCESS 3.1 mmol/L (-2.0-3.0); ABG HCO3 25.4 mmol/L (22.0-26.0); ABG OXYGEN SATURATION 98.3 % (95-98); ABG PH (T) 7.545 (7.350-7.450); FCOHb 0.1 % (0.5-1.5); FMetHb 0.2 % (0.3-1.12); PATIENT TEMPERATURE 36.8; TOTAL HEMOGLOBIN 9.2 G/dl (12.0-16.0)
[2018-06-14 01:23] LABS: ALANINE AMINOTRANSFERASE 13 U/L (12-78); ALBUMIN 2.8 G/DL (3.4-5.0); ALBUMIN/GLOBULIN RATIO 0.6 (1.1-1.5); ALKALINE PHOSPHATASE 111 IU/L (46-116); ANION GAP 7 (8-16); ASPARTATE AMINO TRANSFERASE 20 U/L (10-37); BILIRUBIN,TOTAL 0.8 MG/DL (0.1-1.0); BLOOD UREA NITROGEN 14 MG/DL (7-18); BUN/CREATININE RATIO 8.8 (6.6-38.0); CALCIUM 9.2 MG/DL (8.5-10.1); CHLORIDE 104 MMOL/L (99-107); GLUCOSE 222 MG/DL (70-104); SODIUM 139 MMOL/L (135-145); TOTAL CARBON DIOXIDE 27.8 MMOL/L (24-32); TOTAL PROTEIN 7.3 G/DL (6.4-8.2); eGFR 32 ML/MIN
[2018-06-14 03:00] VITALS: BP 125/51
[2018-06-14 06:00] VITALS: BP 137/59
[2018-06-14] MEDS ORDERED: levoTHYROXINE 112mcg tablet PO SCH (07:30)
[2018-06-14] MEDS: pantoprazole 40mg Tablet.DR PO SCH (07:49)
[2018-06-14] MEDS: aspirin 81mg tab.chew PO SCH (07:53)
[2018-06-14] MEDS: docusate sod 100mg capsule PO SCH ×2 (07:54→20:00)
[2018-06-14] MEDS: diltiazem 30mg tablet PO SCH ×4 (07:54→20:13)
[2018-06-14] MEDS: MILNACIPRAN HCL 50 MG TABLET PO SCH ×2 (07:55→20:13)
[2018-06-14] MEDS: losartan 50mg tablet PO SCH (07:55)
[2018-06-14] MEDS: atorvastatin 20mg tablet PO SCH (07:55)
[2018-06-14] MEDS: nitroGLYCERIN 0.2mg/hour patch TD SCH (07:56)
[2018-06-14] MEDS ORDERED: furosemide 10 MG/1 ML 10ml inj IV SCH (08:00)
[2018-06-14] MEDS ORDERED: apixaban 5mg tablet PO SCH (08:00)
[2018-06-14] MEDS: levoFLOXACIN-Levaquin 500mg/D5 100 ML IV SCH (08:17)
[2018-06-14] MEDS: methylPREDNISolone sod succ 125mg/2ml vial IV SCH ×2 (08:17→20:12)
[2018-06-14] MEDS: insulin Lispro (HumaLOG) vial - multi-dose SQ SCH ×3 (08:34→17:52)
[2018-06-14] MEDS ORDERED: magnesium Cl slow-release 64mg tablet PO PRN (09:50)
[2018-06-14] MEDS ORDERED: potassium Cl 40MEQ/NS 500ml 500 ML IV PRN ×2 (09:50)
[2018-06-14] MEDS ORDERED: magnesium 4gm in 100ml NS 100 ML IV PRN (09:50)
[2018-06-14] MEDS ORDERED: potassium Cl 20 mEq SR tablet PO PRN (09:50)
[2018-06-14] MEDS ORDERED: HYDROmorphone inj. 0.5 MG/0.5 ML DISP.SYRIN IV PRN (10:02)
[2018-06-14 11:00] VITALS: BP 106/77
[2018-06-14 11:54] LABS: MAGNESIUM 1.6 MG/DL (1.5-2.4)
[2018-06-14 15:00] VITALS: BP 144/73
[2018-06-14 19:00] VITALS: BP 113/44
[2018-06-14] MEDS: furosemide 40mg/4ml inj IV SCH (20:12)
[2018-06-14] MEDS: lactobacillus rhamnosus 10,000 MMU CELLS/CAPSULE PO SCH (20:13)
[2018-06-14] MEDS: apixaban 5mg tablet PO SCH (20:13)
[2018-06-14] MEDS: temazepam 15mg capsule PO PRN (22:03)
[2018-06-14 23:00] VITALS: BP 129/55
[2018-06-15 03:00] VITALS: BP 124/52
[2018-06-15 05:29] LABS: BASOPHILS % (AUTO) 0.1 % (0-1); EOSINOPHILS % (AUTO) 0 % (0-6); HEMATOCRIT 27.4 % (35.0-45.0); HEMOGLOBIN 8.5 g/dl (12.0-16.0); LYMPHOCYTES # (AUTO) 0.7 X10'3 (1.1-4.8); LYMPHOCYTES % (AUTO) 5.9 % (21-51); MEAN CORPUSCULAR HEMOGLOBIN 24.8 PG (27.0-31.0); MEAN CORPUSCULAR HGB CONC 31.1 % (33.0-36.5); MEAN CORPUSCULAR VOLUME 79.7 FL (78-98); MEAN PLATELET VOLUME 6.8 FL (7.4-10.4); MONOCYTES # (AUTO) 0.4 X10'3 (0-0.9); MONOCYTES % (AUTO) 3.3 % (2-12); NEUTROPHILS # (AUTO) 10.8 X10'3 (1.8-7.7); NEUTROPHILS % (AUTO) 90.7 % (42-75); PLATELET COUNT 396 X10'3 (140-440); RED BLOOD COUNT 3.44 X10'6 (4.20-5.60); RED CELL DISTRIBUTION WIDTH 20.8 % (11.5-14.5); WHITE BLOOD COUNT 11.9 X10'3 (4.5-11.0)
[2018-06-15 05:36] LABS: % IRON SATURATION 6 % (11-46); IRON 23 UG/DL (49-151); TOTAL IRON BINDING CAPACITY 402 UG/DL (259-388)
[2018-06-15 06:00] VITALS: BP 143/57
[2018-06-15 06:10] LABS: ALANINE AMINOTRANSFERASE 13 U/L (12-78); ALBUMIN/GLOBULIN RATIO 0.6 (1.1-1.5); ALKALINE PHOSPHATASE 110 IU/L (46-116); ANION GAP 12 (8-16); ASPARTATE AMINO TRANSFERASE 22 U/L (10-37); BILIRUBIN,TOTAL 1.1 MG/DL (0.1-1.0); BLOOD UREA NITROGEN 26 MG/DL (7-18); BUN/CREATININE RATIO 11.4 (6.6-38.0); CALCIUM 9.5 MG/DL (8.5-10.1); CHLORIDE 97 MMOL/L (99-107); CREATININE 2.28 MG/DL (0.40-0.90); GLUCOSE 359 MG/DL (70-104); PHOSPHORUS 3.1 MG/DL (2.3-4.5); POTASSIUM 3.4 MMOL/L (3.5-5.1); SODIUM 135 MMOL/L (135-145); TOTAL CARBON DIOXIDE 26.1 MMOL/L (24-32); TOTAL PROTEIN 7.8 G/DL (6.4-8.2); eGFR 21 ML/MIN
[2018-06-15 06:14] LABS: FERRITIN 354 NG/ML (8-252)
[2018-06-15] MEDS ORDERED: levoTHYROXINE 112mcg tablet PO SCH (07:30)
[2018-06-15] MEDS: nitroGLYCERIN 0.2mg/hour patch TD SCH (08:00)
[2018-06-15] MEDS: insulin Lispro (HumaLOG) vial - multi-dose SQ SCH ×3 (08:47→18:54)
[2018-06-15] MEDS: MILNACIPRAN HCL 50 MG TABLET PO SCH ×2 (08:48→21:00)
[2018-06-15] MEDS: lactobacillus rhamnosus 10,000 MMU CELLS/CAPSULE PO SCH ×2 (08:49→21:00)
[2018-06-15] MEDS: losartan 50mg tablet PO SCH (08:49)
[2018-06-15] MEDS: atorvastatin 20mg tablet PO SCH (08:49)
[2018-06-15] MEDS: potassium Cl 20 mEq SR tablet PO PRN ×2 (08:50→15:19)
[2018-06-15] MEDS: apixaban 5mg tablet PO SCH ×2 (08:50→21:00)
[2018-06-15] MEDS: docusate sod 100mg capsule PO SCH ×2 (08:51→21:00)
[2018-06-15] MEDS: aspirin 81mg tab.chew PO SCH (08:51)
[2018-06-15] MEDS: furosemide 40mg/4ml inj IV SCH (08:52)
[2018-06-15] MEDS: methylPREDNISolone sod succ 125mg/2ml vial IV SCH (08:55)
[2018-06-15] MEDS: levoFLOXACIN-Levaquin 500mg/D5 100 ML IV SCH (09:03)
[2018-06-15] MEDS: pantoprazole 40mg Tablet.DR PO SCH (09:08)
[2018-06-15] MEDS: diltiazem 30mg tablet PO SCH ×4 (09:09→21:00)
[2018-06-15] MEDS: levoTHYROXINE 75mcg tablet PO SCH (09:12)
[2018-06-15 11:00] VITALS: BP 122/53
[2018-06-15 16:22] VITALS: BP 135/78
[2018-06-15 19:00] VITALS: BP 129/44
[2018-06-15] MEDS: furosemide 20 MG/2 ML vial IV SCH (20:00)
[2018-06-15] MEDS: temazepam 15mg capsule PO PRN (21:00)
[2018-06-15 23:00] VITALS: BP 129/56
[2018-06-16 03:00] VITALS: BP 122/38
[2018-06-16 05:48] LABS: BASOPHILS % (AUTO) 0 % (0-1); EOSINOPHILS # (AUTO) 0.3 X10'3 (0-0.9); EOSINOPHILS % (AUTO) 1.5 % (0-6); HEMATOCRIT 25.7 % (35.0-45.0); LYMPHOCYTES # (AUTO) 0.6 X10'3 (1.1-4.8); MEAN CORPUSCULAR HEMOGLOBIN 24.6 PG (27.0-31.0); MEAN CORPUSCULAR VOLUME 79.3 FL (78-98); MEAN PLATELET VOLUME 6.8 FL (7.4-10.4); MONOCYTES # (AUTO) 1.2 X10'3 (0-0.9); NEUTROPHILS # (AUTO) 17.3 X10'3 (1.8-7.7); NEUTROPHILS % (AUTO) 89.5 % (42-75); PLATELET COUNT 401 X10'3 (140-440); RED BLOOD COUNT 3.24 X10'6 (4.20-5.60); RED CELL DISTRIBUTION WIDTH 20.9 % (11.5-14.5); WHITE BLOOD COUNT 19.3 X10'3 (4.5-11.0)
[2018-06-16 06:11] LABS: ALANINE AMINOTRANSFERASE 14 U/L (12-78); ALBUMIN/GLOBULIN RATIO 0.7 (1.1-1.5); ALKALINE PHOSPHATASE 96 IU/L (46-116); ANION GAP 14 (8-16); ASPARTATE AMINO TRANSFERASE 29 U/L (10-37); BLOOD UREA NITROGEN 38 MG/DL (7-18); BUN/CREATININE RATIO 16.4 (6.6-38.0); CALCIUM 9.5 MG/DL (8.5-10.1); CHLORIDE 96 MMOL/L (99-107); CREATININE 2.32 MG/DL (0.40-0.90); GLUCOSE 268 MG/DL (70-104); POTASSIUM 4.1 MMOL/L (3.5-5.1); SODIUM 134 MMOL/L (135-145); TOTAL CARBON DIOXIDE 24.4 MMOL/L (24-32); TOTAL PROTEIN 7.5 G/DL (6.4-8.2); eGFR 21 ML/MIN
[2018-06-16 07:00] VITALS: BP 130/45
[2018-06-16 07:03] LABS: ANISOCYTOSIS 3+; HYPOCHROMASIA 1+; PLATELET ESTIMATE NORMAL
[2018-06-16] MEDS: levoTHYROXINE 75mcg tablet PO SCH (07:03)
[2018-06-16] MEDS: pantoprazole 40mg Tablet.DR PO SCH (07:03)
[2018-06-16] MEDS: diltiazem 30mg tablet PO SCH ×4 (07:03→20:08)
[2018-06-16 07:04] LABS: ELLIPTOCYTES FEW
[2018-06-16] MEDS: levoFLOXACIN-Levaquin 500mg/D5 100 ML IV SCH (08:28)
[2018-06-16] MEDS: docusate sod 100mg capsule PO SCH ×2 (08:28→20:07)
[2018-06-16] MEDS: furosemide 20 MG/2 ML vial IV SCH ×2 (08:28→20:06)
[2018-06-16] MEDS: lactobacillus rhamnosus 10,000 MMU CELLS/CAPSULE PO SCH ×2 (08:28→20:07)
[2018-06-16] MEDS: aspirin 81mg tab.chew PO SCH (08:29)
[2018-06-16] MEDS: apixaban 5mg tablet PO SCH ×2 (08:29→20:07)
[2018-06-16] MEDS: methylPREDNISolone sod succ 125mg/2ml vial IV SCH (08:29)
[2018-06-16] MEDS: losartan 50mg tablet PO SCH (08:29)
[2018-06-16] MEDS: atorvastatin 20mg tablet PO SCH (08:29)
[2018-06-16] MEDS: nitroGLYCERIN 0.2mg/hour patch TD SCH (08:30)
[2018-06-16] MEDS: MILNACIPRAN HCL 50 MG TABLET PO SCH ×2 (08:30→20:07)
[2018-06-16] MEDS: insulin Lispro (HumaLOG) vial - multi-dose SQ SCH ×4 (08:34→21:38)
[2018-06-16] MEDS ORDERED: levoTHYROXINE 75mcg tablet PO SCH (09:00)
[2018-06-16 11:00] VITALS: BP 119/43
[2018-06-16 15:00] VITALS: BP_SYST 108; BP_SYST 150; BP_DIAS 53; BP_DIAS 83
[2018-06-16 20:00] VITALS: BP 125/50
[2018-06-16] MEDS: temazepam 15mg capsule PO PRN (23:21)
[2018-06-17] VITALS: BP 132/51
[2018-06-17] MEDS ORDERED: LORazepam 2 mg/ml vial IV ONE (04:10)
[2018-06-17 06:17] LABS: BASOPHILS % (AUTO) 0 % (0-1); EOSINOPHILS % (AUTO) 0 % (0-6); HEMATOCRIT 25.8 % (35.0-45.0); LYMPHOCYTES # (AUTO) 0.5 X10'3 (1.1-4.8); LYMPHOCYTES % (AUTO) 2.7 % (21-51); MEAN CORPUSCULAR HEMOGLOBIN 24.4 PG (27.0-31.0); MEAN CORPUSCULAR HGB CONC 30.9 % (33.0-36.5); MEAN CORPUSCULAR VOLUME 78.8 FL (78-98); MEAN PLATELET VOLUME 7.1 FL (7.4-10.4); MONOCYTES # (AUTO) 1.5 X10'3 (0-0.9); MONOCYTES % (AUTO) 7.7 % (2-12); NEUTROPHILS # (AUTO) 17.8 X10'3 (1.8-7.7); NEUTROPHILS % (AUTO) 89.6 % (42-75); PLATELET COUNT 365 X10'3 (140-440); RED BLOOD COUNT 3.27 X10'6 (4.20-5.60); RED CELL DISTRIBUTION WIDTH 20.7 % (11.5-14.5); WHITE BLOOD COUNT 19.9 X10'3 (4.5-11.0)
[2018-06-17 06:32] LABS: ALANINE AMINOTRANSFERASE 20 U/L (12-78); ALBUMIN/GLOBULIN RATIO 0.7 (1.1-1.5); ALKALINE PHOSPHATASE 93 IU/L (46-116); ANION GAP 13 (8-16); ASPARTATE AMINO TRANSFERASE 38 U/L (10-37); BILIRUBIN,TOTAL 1.1 MG/DL (0.1-1.0); BLOOD UREA NITROGEN 48 MG/DL (7-18); CALCIUM 9.6 MG/DL (8.5-10.1); CHLORIDE 96 MMOL/L (99-107); CREATININE 2.18 MG/DL (0.40-0.90); GLUCOSE 224 MG/DL (70-104); POTASSIUM 3.9 MMOL/L (3.5-5.1); SODIUM 134 MMOL/L (135-145); TOTAL CARBON DIOXIDE 24.7 MMOL/L (24-32); TOTAL PROTEIN 7.4 G/DL (6.4-8.2); eGFR 22 ML/MIN
[2018-06-17 07:08] LABS: PLATELET ESTIMATE NORMAL
[2018-06-17 07:09] LABS: ANISOCYTOSIS 3+; POLYCHROMASIA 1+; TARGET CELLS FEW
[2018-06-17] MEDS: MILNACIPRAN HCL 50 MG TABLET PO SCH (08:00)
[2018-06-17 08:08] VITALS: BP 129/64
[2018-06-17] MEDS: insulin Lispro (HumaLOG) vial - multi-dose SQ SCH ×4 (09:20→22:02)
[2018-06-17] MEDS: furosemide 20 MG/2 ML vial IV SCH ×2 (09:25→19:25)
[2018-06-17] MEDS: docusate sod 100mg capsule PO SCH ×2 (09:26→19:10)
[2018-06-17] MEDS: methylPREDNISolone sod succ 125mg/2ml vial IV SCH (09:26)
[2018-06-17] MEDS: levoTHYROXINE 75mcg tablet PO SCH (09:26)
[2018-06-17] MEDS: aspirin 81mg tab.chew PO SCH (09:27)
[2018-06-17] MEDS: pantoprazole 40mg Tablet.DR PO SCH (09:27)
[2018-06-17] MEDS: losartan 50mg tablet PO SCH (09:27)
[2018-06-17] MEDS: lactobacillus rhamnosus 10,000 MMU CELLS/CAPSULE PO SCH ×2 (09:27→19:10)
[2018-06-17] MEDS: apixaban 5mg tablet PO SCH ×2 (09:28→19:10)
[2018-06-17] MEDS: atorvastatin 20mg tablet PO SCH (09:28)
[2018-06-17] MEDS: diltiazem 30mg tablet PO SCH ×4 (09:29→21:53)
[2018-06-17] MEDS: nitroGLYCERIN 0.2mg/hour patch TD SCH (09:35)
[2018-06-17] MEDS: levoFLOXACIN-Levaquin 250mg/D5 50 ML IV SCH (09:36)
[2018-06-17 11:00] VITALS: BP 124/53
[2018-06-17 18:00] LABS: HYPOCHROMASIA 2+
[2018-06-17 18:02] LABS: ELLIPTOCYTES FEW; SCHISTOCYTES 1+
[2018-06-17] MEDS: MILNACIPRAN HCL 50 MG PO SCH (19:10)
[2018-06-17 20:00] VITALS: BP 132/59
[2018-06-17] MEDS ORDERED: LORazepam 2 mg/ml vial IV PRN (22:30)
[2018-06-18] VITALS: BP 112/50
[2018-06-18 05:35] LABS: BASOPHILS % (AUTO) 0 % (0-1); EOSINOPHILS # (AUTO) 0.3 X10'3 (0-0.9); EOSINOPHILS % (AUTO) 1.3 % (0-6); HEMATOCRIT 25.5 % (35.0-45.0); HEMOGLOBIN 8.1 g/dl (12.0-16.0); LYMPHOCYTES # (AUTO) 0.6 X10'3 (1.1-4.8); LYMPHOCYTES % (AUTO) 3.1 % (21-51); MEAN CORPUSCULAR HEMOGLOBIN 24.7 PG (27.0-31.0); MEAN CORPUSCULAR HGB CONC 31.6 % (33.0-36.5); MEAN CORPUSCULAR VOLUME 78.1 FL (78-98); MONOCYTES # (AUTO) 1.3 X10'3 (0-0.9); MONOCYTES % (AUTO) 6.3 % (2-12); NEUTROPHILS # (AUTO) 17.8 X10'3 (1.8-7.7); NEUTROPHILS % (AUTO) 89.3 % (42-75); PLATELET COUNT 385 X10'3 (140-440); RED BLOOD COUNT 3.26 X10'6 (4.20-5.60); RED CELL DISTRIBUTION WIDTH 20.5 % (11.5-14.5); WHITE BLOOD COUNT 19.9 X10'3 (4.5-11.0)
[2018-06-18 06:09] LABS: ALANINE AMINOTRANSFERASE 19 U/L (12-78); ALBUMIN 2.8 G/DL (3.4-5.0); ALBUMIN/GLOBULIN RATIO 0.7 (1.1-1.5); ALKALINE PHOSPHATASE 91 IU/L (46-116); ANION GAP 11 (8-16); ASPARTATE AMINO TRANSFERASE 34 U/L (10-37); BILIRUBIN,TOTAL 1.3 MG/DL (0.1-1.0); BLOOD UREA NITROGEN 47 MG/DL (7-18); BUN/CREATININE RATIO 24.6 (6.6-38.0); CALCIUM 9.2 MG/DL (8.5-10.1); CHLORIDE 98 MMOL/L (99-107); CREATININE 1.91 MG/DL (0.40-0.90); GLUCOSE 201 MG/DL (70-104); POTASSIUM 3.7 MMOL/L (3.5-5.1); SODIUM 135 MMOL/L (135-145); TOTAL CARBON DIOXIDE 25.6 MMOL/L (24-32); eGFR 26 ML/MIN
[2018-06-18 07:26] VITALS: BP 123/53
[2018-06-18] MEDS ORDERED: methylPREDNISolone sod succ 125mg/2ml vial IV SCH (08:00)
[2018-06-18] MEDS: furosemide 20 MG/2 ML vial IV SCH (08:00)
[2018-06-18] MEDS: insulin Lispro (HumaLOG) vial - multi-dose SQ SCH (10:21)
[2018-06-18] MEDS: aspirin 81mg tab.chew PO SCH (10:23)
[2018-06-18] MEDS: pantoprazole 40mg Tablet.DR PO SCH (10:23)
[2018-06-18] MEDS: levoTHYROXINE 75mcg tablet PO SCH (10:24)
[2018-06-18] MEDS: apixaban 5mg tablet PO SCH (10:24)
[2018-06-18] MEDS: diltiazem 30mg tablet PO SCH ×2 (10:25→12:54)
[2018-06-18] MEDS: lactobacillus rhamnosus 10,000 MMU CELLS/CAPSULE PO SCH (10:26)
[2018-06-18] MEDS: losartan 50mg tablet PO SCH (10:26)
[2018-06-18] MEDS: docusate sod 100mg capsule PO SCH (10:26)
[2018-06-18] MEDS: MILNACIPRAN HCL 50 MG PO SCH (10:27)
[2018-06-18] MEDS: nitroGLYCERIN 0.2mg/hour patch TD SCH (10:29)
[2018-06-18] MEDS: levoFLOXACIN-Levaquin 250mg/D5 50 ML IV SCH (10:41)
[2018-06-18] MEDS: atorvastatin 20mg tablet PO SCH (10:47)
[2018-06-18 11:42] VITALS: BP 135/45
== END 2018-06-18 14:56 | DRG 291 ==
LOC: ER 12:34 → PCU 3S 20:10 → SUR 3N 06-16 17:30
PROVIDERS: ADMIT Family Medicine; ATTEND Family Medicine
PROC: CB121ZZ Planar Nuclear Medicine Imaging of Lungs and Bronchi using Technetium 99m (Tc-99m) (ICD-10-PCS; principal; 2018-06-14)
DX: I13.0 Hypertensive heart and chronic kidney disease with heart failure and stage 1 through stage 4 chronic kidney disease, or unspecified chronic kidney disease (principal); J18.9 Pneumonia, unspecified organism; I50.33 Acute on chronic diastolic (congestive) heart failure; I26.99 Other pulmonary embolism without acute cor pulmonale; N17.9 Acute kidney failure, unspecified; J44.1 Chronic obstructive pulmonary disease with (acute) exacerbation; Z68.42 Body mass index [BMI] 45.0-49.9, adult; I48.92 Unspecified atrial flutter; J44.0 Chronic obstructive pulmonary disease with (acute) lower respiratory infection; I48.91 Unspecified atrial fibrillation; E03.9 Hypothyroidism, unspecified; R91.1 Solitary pulmonary nodule; Z79.890 Hormone replacement therapy; D64.9 Anemia, unspecified; E11.22 Type 2 diabetes mellitus with diabetic chronic kidney disease; E66.01 Morbid (severe) obesity due to excess calories; E78.00 Pure hypercholesterolemia, unspecified; E78.5 Hyperlipidemia, unspecified; G25.81 Restless legs syndrome; E87.6 Hypokalemia; G47.33 Obstructive sleep apnea (adult) (pediatric); I25.10 Atherosclerotic heart disease of native coronary artery without angina pectoris; M79.7 Fibromyalgia; N18.3 Chronic kidney disease, stage 3 (moderate); R79.1 Abnormal coagulation profile; I27.20 Pulmonary hypertension, unspecified; M19.90 Unspecified osteoarthritis, unspecified site; Z90.49 Acquired absence of other specified parts of digestive tract; Z95.0 Presence of cardiac pacemaker; Z88.0 Allergy status to penicillin; Z88.2 Allergy status to sulfonamides; Z88.1 Allergy status to other antibiotic agents; Z91.048 Other nonmedicinal substance allergy status; Z88.8 Allergy status to other drugs, medicaments and biological substances; Z79.4 Long term (current) use of insulin; Z87.891 Personal history of nicotine dependence; Z83.3 Family history of diabetes mellitus; Z82.3 Family history of stroke; Z82.49 Family history of ischemic heart disease and other diseases of the circulatory system
CPT/HCPCS: 36415; 36600; 71045; 71250; 78582; 80053; 82728; 82803; 82948; 83036; 83540; 83550; 83735; 83880; 84100; 84443; 84484; 85018; 85025; 85379; 85610; 85730; 87070; 93005; 93308; 93970; 96374; 97116; 97161; 97530; 99285; A9539; A9540; J1644; J1940; J1956; J2060; J2930

== ENCOUNTER 2018-07-05 16:13 | Inpatient (IN) | payer MEDICARE ==
[~2018-07-05] VITALS: Ht 154.9 cm; Wt 127.4 kg
[2018-07-05 17:29] LABS: BASOPHILS % (AUTO) 0 % (0-1); EOSINOPHILS # (AUTO) 0.2 X10'3 (0-0.9); EOSINOPHILS % (AUTO) 1.6 % (0-6); HEMATOCRIT 26.1 % (35.0-45.0); HEMOGLOBIN 8.1 g/dl (12.0-16.0); LYMPHOCYTES # (AUTO) 0.5 X10'3 (1.1-4.8); LYMPHOCYTES % (AUTO) 3.8 % (21-51); MEAN CORPUSCULAR HEMOGLOBIN 25.1 PG (27.0-31.0); MEAN CORPUSCULAR HGB CONC 30.9 % (33.0-36.5); MEAN CORPUSCULAR VOLUME 81.2 FL (78-98); MEAN PLATELET VOLUME 7.9 FL (7.4-10.4); MONOCYTES # (AUTO) 0.6 X10'3 (0-0.9); MONOCYTES % (AUTO) 4.7 % (2-12); NEUTROPHILS # (AUTO) 11.2 X10'3 (1.8-7.7); NEUTROPHILS % (AUTO) 89.9 % (42-75); PLATELET COUNT 224 X10'3 (140-440); RED BLOOD COUNT 3.21 X10'6 (4.20-5.60); RED CELL DISTRIBUTION WIDTH 21.5 % (11.5-14.5); WHITE BLOOD COUNT 12.5 X10'3 (4.5-11.0)
[2018-07-05 17:43] LABS: ALANINE AMINOTRANSFERASE 83 U/L (12-78); ALBUMIN 2.6 G/DL (3.4-5.0); ALBUMIN/GLOBULIN RATIO 0.7 (1.1-1.5); ALKALINE PHOSPHATASE 203 IU/L (46-116); ANION GAP 11 (8-16); ASPARTATE AMINO TRANSFERASE 51 U/L (10-37); BILIRUBIN,TOTAL 3.2 MG/DL (0.1-1.0); BLOOD UREA NITROGEN 69 MG/DL (7-18); CALCIUM 9.8 MG/DL (8.5-10.1); CHLORIDE 98 MMOL/L (99-107); CREATININE 2.38 MG/DL (0.40-0.90); GLUCOSE 227 MG/DL (70-104); POTASSIUM 5.4 MMOL/L (3.5-5.1); SODIUM 131 MMOL/L (135-145); TOTAL PROTEIN 6.5 G/DL (6.4-8.2); eGFR 20 ML/MIN
[2018-07-05 17:45] LABS: INR 1.5 INR; PARTIAL THROMBOPLASTIN TIME 32 SECONDS (22-32); PROTHROMBIN TIME 14.9 SECONDS (9.0-12.0)
[2018-07-05 17:51] LABS: PLATELET ESTIMATE NORMAL
[2018-07-05 17:53] LABS: ANISOCYTOSIS 3+; BURR CELLS FEW; HYPOCHROMASIA 1+; POIKILOCYTOSIS 1+; POLYCHROMASIA 1+; SCHISTOCYTES FEW; TARGET CELLS FEW
[2018-07-05] MEDS ORDERED: BISA10SU60 RC (18:58)
[2018-07-05] MEDS ORDERED: DIO80T PO (18:58)
[2018-07-05] MEDS ORDERED: MELA3TAB PO (18:58)
[2018-07-05] MEDS ORDERED: INSU100V9 SQ ×2 (18:58)
[2018-07-05] MEDS ORDERED: NITR0.4T51 SL (18:58)
[2018-07-05] MEDS ORDERED: FLUT1BLS3 INH (18:58)
[2018-07-05] MEDS ORDERED: ASPI-1265 PO (18:58)
[2018-07-05] MEDS ORDERED: DOCU-28 PO (18:58)
[2018-07-05] MEDS ORDERED: POLY17PO10 PO (18:58)
[2018-07-05] MEDS ORDERED: DILT60TA3 PO (18:58)
[2018-07-05] MEDS ORDERED: SYN0.088T PO (18:58)
[2018-07-05] MEDS ORDERED: SITA50TA PO (18:58)
[2018-07-05] MEDS ORDERED: furosemide 10 MG/1 ML 10ml inj IV ONE (19:05)
[2018-07-05] MEDS ORDERED: sodium polystyrene sulfonate 15gm/60ml oral suspension PO ONE (19:05)
[2018-07-05] MEDS ORDERED: azithromycin/NS 500mg/250ml 250 ML IV ONE (19:05)
[2018-07-05] MEDS ORDERED: cefepime 1GM/NS ADD-VANTAGE 100 ML IV ONE (19:05)
[2018-07-05] MEDS ORDERED: dextrose 50%-water 50ml dispensing syringe IV PRN ×2 (20:45)
[2018-07-05] MEDS ORDERED: glucagon, human recombinant 1mg kit SUBCUT PRN (20:45)
[2018-07-05] MEDS ORDERED: MESSAGE TO PHARMACY PO ONE (20:45)
[2018-07-05] MEDS ORDERED: insulin Lispro (HumaLOG) vial - multi-dose SQ SCH (20:45)
[2018-07-05] MEDS ORDERED: dextrose ORAL solution 15 GM/59 ML bottle PO PRN ×2 (20:45)
[2018-07-05] MEDS ORDERED: bisacodyl 10mg suppository rectal RC PRN (20:50)
[2018-07-05] MEDS ORDERED: diphenhydrAMINE 25mg capsule PO PRN (20:50)
[2018-07-05] MEDS ORDERED: magnesium hydroxide 30ml (MOM) UD suspension PO PRN (20:50)
[2018-07-05] MEDS ORDERED: acetaminophen 650mg rectal suppository RC PRN (20:50)
[2018-07-05] MEDS ORDERED: HYDROmorphone 1 mg/ml syringe IV PRN ×2 (20:50)
[2018-07-05] MEDS ORDERED: morphine 2 MG/ML inj. syringe IV PRN ×2 (20:50)
[2018-07-05] MEDS ORDERED: mag hydrox/Alum hydrox/simeth 30ml oral suspension PO PRN (20:50)
[2018-07-05] MEDS ORDERED: diphenhydrAMINE 50 mg/ml inj IV PRN (20:50)
[2018-07-05] MEDS ORDERED: metoclopramide 5 mg/ml inj IV PRN (20:50)
[2018-07-05] MEDS ORDERED: ondansetron/PF 4mg/2ml inj IV PRN (20:50)
[2018-07-05] MEDS ORDERED: acetaminophen 325mg tablet PO PRN ×2 (20:50)
[2018-07-05] MEDS ORDERED: temazepam 15mg capsule PO PRN (21:00)
[2018-07-05 21:18] LABS: LIPASE 274 U/L (73-393); MAGNESIUM 2.4 MG/DL (1.5-2.4); PHOSPHORUS 3.9 MG/DL (2.3-4.5); TROPONIN I < 0.04 NG/ML (0.0-0.05)
[2018-07-05 21:38] LABS: CLARITY,URINE SLIGHTLY CLOUDY (Clear); COLOR,URINE YELLOW (Yellow); GLUCOSE, URINE NEGATIVE (Neg); KETONES,URINE NEGATIVE (Neg); LEUKOCYTE ESTERASE ,URINE TRACE (Neg); NITRITES, URINE NEGATIVE (Neg); OCCULT BLOOD,URINE NEGATIVE (Neg); PROTEIN,URINE NEGATIVE (Neg)
[2018-07-05 21:43] LABS: UA COLLECTION TYPE CLN CATCH MIDSTREAM
[2018-07-05 21:45] LABS: BACTERIA,URINE 4+ /HPF (Neg); MUCUS STRANDS FEW /LPF (Neg); RBC,URINE NONE SEEN /HPF (0-2); SQUAMOUS EPITHELIAL CELL,UR FEW /LPF (FEW)
[2018-07-05 21:47] LABS: AMORPHOUS URATES 2+
[2018-07-05 22:35] VITALS: BP 115/34
[2018-07-06] VITALS: BP 119/24
[2018-07-06] MEDS ORDERED: sodium polystyrene sulfonate 15gm/60ml oral suspension PO ONE (01:35)
[2018-07-06] MEDS ORDERED: albuterol 2.5 MG/3 ML nebule NEB ONE (01:35)
[2018-07-06] MEDS ORDERED: calcium chloride 100 MG/1 ML inj IV ONE (01:35)
[2018-07-06] MEDS ORDERED: calcium chloride inj. 1,000 MG in normal saline 100ml IV soln 90 ML IV ONE (01:40)
[2018-07-06 05:10] LABS: BASOPHILS % (AUTO) 0 % (0-1); EOSINOPHILS % (AUTO) 0.3 % (0-6); HEMATOCRIT 25.2 % (35.0-45.0); HEMOGLOBIN 7.8 g/dl (12.0-16.0); LYMPHOCYTES # (AUTO) 1.3 X10'3 (1.1-4.8); LYMPHOCYTES % (AUTO) 9.4 % (21-51); MEAN CORPUSCULAR HEMOGLOBIN 25.2 PG (27.0-31.0); MEAN CORPUSCULAR HGB CONC 30.9 % (33.0-36.5); MEAN CORPUSCULAR VOLUME 81.6 FL (78-98); MEAN PLATELET VOLUME 7.8 FL (7.4-10.4); MONOCYTES # (AUTO) 0.8 X10'3 (0-0.9); MONOCYTES % (AUTO) 6.1 % (2-12); NEUTROPHILS # (AUTO) 11.3 X10'3 (1.8-7.7); NEUTROPHILS % (AUTO) 84.2 % (42-75); PLATELET COUNT 225 X10'3 (140-440); RED BLOOD COUNT 3.09 X10'6 (4.20-5.60); RED CELL DISTRIBUTION WIDTH 20.8 % (11.5-14.5); WHITE BLOOD COUNT 13.4 X10'3 (4.5-11.0)
[2018-07-06 05:34] LABS: ALANINE AMINOTRANSFERASE 77 U/L (12-78); ALBUMIN 2.5 G/DL (3.4-5.0); ALBUMIN/GLOBULIN RATIO 0.6 (1.1-1.5); ALKALINE PHOSPHATASE 195 IU/L (46-116); ANION GAP 12 (8-16); ASPARTATE AMINO TRANSFERASE 52 U/L (10-37); BLOOD UREA NITROGEN 69 MG/DL (7-18); BUN/CREATININE RATIO 28.5 (6.6-38.0); CALCIUM 10.2 MG/DL (8.5-10.1); CHLORIDE 99 MMOL/L (99-107); CREATININE 2.42 MG/DL (0.40-0.90); GLUCOSE 181 MG/DL (70-104); POTASSIUM 4.6 MMOL/L (3.5-5.1); SODIUM 132 MMOL/L (135-145); TOTAL CARBON DIOXIDE 20.9 MMOL/L (24-32); TOTAL PROTEIN 6.4 G/DL (6.4-8.2); eGFR 20 ML/MIN
[2018-07-06 05:35] LABS: ANISOCYTOSIS 3+; HYPOCHROMASIA 1+; PLATELET ESTIMATE NORMAL; POLYCHROMASIA 1+
[2018-07-06 05:36] LABS: BURR CELLS FEW; SCHISTOCYTES FEW; TARGET CELLS FEW
[2018-07-06] MEDS ORDERED: MILN50TA PO (06:06)
[2018-07-06] MEDS ORDERED: pantoprazole 40mg Tablet.DR PO SCH (07:30)
[2018-07-06] MEDS ORDERED: furosemide 20 MG/2 ML vial IV SCH (08:00)
[2018-07-06] MEDS: docusate sod 100mg capsule PO SCH ×3 (08:00→20:00)
[2018-07-06] MEDS ORDERED: non-formulary drug (Atorvastatin Calcium* (Lipitor*) 1 TAB) PO SCH (08:00)
[2018-07-06] MEDS ORDERED: apixaban 5mg tablet PO SCH (08:00)
[2018-07-06] MEDS ORDERED: MILNACIPRAN HCL 50 MG TABLET PO SCH ×3 (08:00→20:00)
[2018-07-06] MEDS ORDERED: methylPREDNISolone sod succ 125mg/2ml vial IV SCH (08:00)
[2018-07-06 08:02] VITALS: BP 109/43
[2018-07-06] MEDS: atorvastatin 20mg tablet PO SCH (09:50)
[2018-07-06] MEDS ORDERED: ALENDRONATE SODIUM 70 MG PO SCH (10:30)
[2018-07-06] MEDS ORDERED: potassium Cl 20 mEq SR tablet PO PRN (10:35)
[2018-07-06] MEDS ORDERED: magnesium Cl slow-release 64mg tablet PO PRN (10:35)
[2018-07-06] MEDS ORDERED: dextrose 50%-water 50ml dispensing syringe IV PRN ×2 (10:35)
[2018-07-06] MEDS ORDERED: dextrose ORAL solution 15 GM/59 ML bottle PO PRN ×2 (10:35)
[2018-07-06] MEDS ORDERED: potassium Cl 40MEQ/NS 500ml 500 ML IV PRN ×2 (10:35)
[2018-07-06] MEDS ORDERED: MESSAGE TO PHARMACY PO ONE (10:35)
[2018-07-06] MEDS ORDERED: magnesium 4gm in 100ml NS 100 ML IV PRN (10:35)
[2018-07-06] MEDS ORDERED: glucagon, human recombinant 1mg kit SUBCUT PRN (10:35)
[2018-07-06 11:46] LABS: % IRON SATURATION 5 % (11-46); IRON 19 UG/DL (49-151); TOTAL IRON BINDING CAPACITY 356 UG/DL (259-388)
[2018-07-06] MEDS ORDERED: NITR0.4T51 SL (12:21)
[2018-07-06 12:25] LABS: OCCULT BLOOD STOOL NEGATIVE (Neg)
[2018-07-06] MEDS: NUT.TX.GLUC.INTOLER,LAC-FR,SOY (GLUCERNA) 237 ML PO SCH (13:00)
[2018-07-06] MEDS: normal saline 1000ml 1,000 ML IV SCH (13:48)
[2018-07-06] MEDS: insulin Lispro (HumaLOG) vial - multi-dose SQ SCH ×3 (13:52→21:11)
[2018-07-06 14:07] VITALS: BP 117/43
[2018-07-06] MEDS: albuterol 2.5 MG/3 ML nebule NEB SCH ×2 (14:51→19:06)
[2018-07-06] MEDS ORDERED: azithromycin/NS 500mg/250ml 250 ML IV ONE (15:05)
[2018-07-06] MEDS: CefTRIAXone/D5W-Rocephin 1gm 50 ML IV SCH (15:27)
[2018-07-06] MEDS: diltiazem 30mg tablet PO SCH (17:18)
[2018-07-06] MEDS: budesonide 0.5mg/2ml UD nebule IH SCH (19:06)
[2018-07-06 20:00] VITALS: BP 117/48
[2018-07-06] MEDS: Melatonin 3mg tablet PO SCH (20:41)
[2018-07-06] MEDS: furosemide 20MG tablet PO SCH (20:42)
[2018-07-06] MEDS: MILNACIPRAN HCL 50 MG TABLET PO SCH (20:46)
[2018-07-06] MEDS: methylPREDNISolone sod succ 125mg/2ml vial IV SCH (20:49)
[2018-07-06] MEDS: HYDROcodone/acetaminophen 10/325mg tab PO PRN (20:56)
[2018-07-06] MEDS: insulin glargine (Lantus) pen - multi-dose SQ SCH (21:13)
[2018-07-07] VITALS: BP 106/45
[2018-07-07] MEDS: normal saline 1000ml 1,000 ML IV SCH (03:25)
[2018-07-07 04:45] LABS: BASOPHILS % (AUTO) 0 % (0-1); EOSINOPHILS # (AUTO) 0.1 X10'3 (0-0.9); EOSINOPHILS % (AUTO) 1.2 % (0-6); HEMATOCRIT 23.3 % (35.0-45.0); HEMOGLOBIN 7.2 g/dl (12.0-16.0); LYMPHOCYTES # (AUTO) 0.4 X10'3 (1.1-4.8); LYMPHOCYTES % (AUTO) 5.6 % (21-51); MEAN CORPUSCULAR HEMOGLOBIN 24.9 PG (27.0-31.0); MEAN CORPUSCULAR HGB CONC 30.9 % (33.0-36.5); MEAN CORPUSCULAR VOLUME 80.7 FL (78-98); MEAN PLATELET VOLUME 7.6 FL (7.4-10.4); MONOCYTES # (AUTO) 0.2 X10'3 (0-0.9); MONOCYTES % (AUTO) 2.9 % (2-12); NEUTROPHILS # (AUTO) 7.1 X10'3 (1.8-7.7); NEUTROPHILS % (AUTO) 90.3 % (42-75); PLATELET COUNT 221 X10'3 (140-440); RED BLOOD COUNT 2.89 X10'6 (4.20-5.60); RED CELL DISTRIBUTION WIDTH 20.8 % (11.5-14.5); WHITE BLOOD COUNT 7.8 X10'3 (4.5-11.0)
[2018-07-07 05:06] LABS: ALANINE AMINOTRANSFERASE 74 U/L (12-78); ALBUMIN 2.2 G/DL (3.4-5.0); ALBUMIN/GLOBULIN RATIO 0.6 (1.1-1.5); ALKALINE PHOSPHATASE 185 IU/L (46-116); ANION GAP 12 (8-16); ASPARTATE AMINO TRANSFERASE 61 U/L (10-37); BLOOD UREA NITROGEN 71 MG/DL (7-18); BUN/CREATININE RATIO 29.5 (6.6-38.0); CALCIUM 9.1 MG/DL (8.5-10.1); CHLORIDE 103 MMOL/L (99-107); CREATININE 2.41 MG/DL (0.40-0.90); GLUCOSE 235 MG/DL (70-104); MAGNESIUM 2.1 MG/DL (1.5-2.4); PHOSPHORUS 4.8 MG/DL (2.3-4.5); POTASSIUM 4.1 MMOL/L (3.5-5.1); SODIUM 137 MMOL/L (135-145); TOTAL CARBON DIOXIDE 22.1 MMOL/L (24-32); TOTAL PROTEIN 5.8 G/DL (6.4-8.2); eGFR 20 ML/MIN
[2018-07-07 05:39] LABS: ANISOCYTOSIS 3+; BURR CELLS FEW; ELLIPTOCYTES FEW; HYPOCHROMASIA 1+; PLATELET ESTIMATE NORMAL; POLYCHROMASIA 1+
[2018-07-07] MEDS ORDERED: levoTHYROXINE 75mcg tablet PO SCH (07:30)
[2018-07-07 08:00] VITALS: BP 122/53
[2018-07-07] MEDS: MILNACIPRAN HCL 50 MG TABLET PO SCH ×2 (08:00→21:12)
[2018-07-07] MEDS: NUT.TX.GLUC.INTOLER,LAC-FR,SOY (GLUCERNA) 237 ML PO SCH ×3 (08:00→17:43)
[2018-07-07] MEDS ORDERED: GLUCOSAMINE SULFATE PO SCH (08:00)
[2018-07-07] MEDS: bisacodyl 10mg suppository rectal RC SCH (08:00)
[2018-07-07] MEDS ORDERED: aspirin 81mg tab.chew PO SCH (08:00)
[2018-07-07] MEDS: docusate sod 100mg capsule PO SCH ×4 (08:00→21:08)
[2018-07-07] MEDS ORDERED: levoFLOXACIN 750MG TABLET PO SCH (08:00)
[2018-07-07] MEDS ORDERED: non-formulary drug (Fluticasone/Vilanterol (Breo Ellipta 200-25 Mcg INH) 1 PUFF) INH SCH (08:00)
[2018-07-07] MEDS: albuterol 2.5 MG/3 ML nebule NEB SCH ×4 (08:09→19:51)
[2018-07-07] MEDS: budesonide 0.5mg/2ml UD nebule IH SCH ×2 (08:09→19:51)
[2018-07-07] MEDS: CefTRIAXone/D5W-Rocephin 1gm 50 ML IV SCH (08:58)
[2018-07-07] MEDS: furosemide 20MG tablet PO SCH ×2 (08:59→21:09)
[2018-07-07] MEDS: methylPREDNISolone sod succ 125mg/2ml vial IV SCH ×2 (08:59→21:06)
[2018-07-07] MEDS: losartan 50mg tablet PO SCH (08:59)
[2018-07-07] MEDS: atorvastatin 20mg tablet PO SCH (09:00)
[2018-07-07] MEDS: levoTHYROXINE 175mcg tablet PO SCH (09:00)
[2018-07-07] MEDS: pantoprazole 40mg Tablet.DR PO SCH (09:00)
[2018-07-07] MEDS: diltiazem 30mg tablet PO SCH ×3 (09:00→17:38)
[2018-07-07] MEDS: insulin Lispro (HumaLOG) vial - multi-dose SQ SCH ×3 (09:05→18:55)
[2018-07-07 11:00] VITALS: BP 117/44
[2018-07-07 17:38] VITALS: BP 105/37
[2018-07-07 20:00] VITALS: BP 110/71
[2018-07-07] MEDS: lactobacillus rhamnosus 10,000 MMU CELLS/CAPSULE PO SCH (21:09)
[2018-07-07] MEDS: ferrous sulfate 325mg tablet PO SCH (21:09)
[2018-07-07] MEDS: Melatonin 3mg tablet PO SCH (21:10)
[2018-07-07] MEDS: insulin glargine (Lantus) pen - multi-dose SQ SCH (21:22)
[2018-07-07] MEDS: HYDROcodone/acetaminophen 10/325mg tab PO PRN (22:47)
[2018-07-08] VITALS: BP 102/51
[2018-07-08] MEDS: normal saline 1000ml 1,000 ML IV SCH (00:34)
[2018-07-08 04:15] VITALS: BP 118/53
[2018-07-08 06:01] LABS: BASOPHILS % (AUTO) 0 % (0-1); EOSINOPHILS # (AUTO) 0.3 X10'3 (0-0.9); EOSINOPHILS % (AUTO) 1.7 % (0-6); HEMATOCRIT 24.2 % (35.0-45.0); HEMOGLOBIN 7.5 g/dl (12.0-16.0); LYMPHOCYTES # (AUTO) 0.4 X10'3 (1.1-4.8); LYMPHOCYTES % (AUTO) 2.7 % (21-51); MEAN CORPUSCULAR VOLUME 80.7 FL (78-98); MEAN PLATELET VOLUME 7.6 FL (7.4-10.4); MONOCYTES # (AUTO) 0.5 X10'3 (0-0.9); MONOCYTES % (AUTO) 3.4 % (2-12); NEUTROPHILS # (AUTO) 14.7 X10'3 (1.8-7.7); NEUTROPHILS % (AUTO) 92.2 % (42-75); PLATELET COUNT 262 X10'3 (140-440); RED CELL DISTRIBUTION WIDTH 20.6 % (11.5-14.5)
[2018-07-08 06:24] LABS: ALANINE AMINOTRANSFERASE 98 U/L (12-78); ALBUMIN 2.4 G/DL (3.4-5.0); ALBUMIN/GLOBULIN RATIO 0.7 (1.1-1.5); ALKALINE PHOSPHATASE 208 IU/L (46-116); ANION GAP 13 (8-16); ASPARTATE AMINO TRANSFERASE 99 U/L (10-37); BILIRUBIN,TOTAL 3.2 MG/DL (0.1-1.0); BLOOD UREA NITROGEN 79 MG/DL (7-18); BUN/CREATININE RATIO 32.5 (6.6-38.0); CHLORIDE 103 MMOL/L (99-107); CREATININE 2.43 MG/DL (0.40-0.90); GLUCOSE 207 MG/DL (70-104); MAGNESIUM 2.2 MG/DL (1.5-2.4); PHOSPHORUS 5.1 MG/DL (2.3-4.5); POTASSIUM 3.4 MMOL/L (3.5-5.1); SODIUM 138 MMOL/L (135-145); TOTAL CARBON DIOXIDE 21.8 MMOL/L (24-32); eGFR 20 ML/MIN
[2018-07-08 07:00] VITALS: BP 112/40
[2018-07-08 07:41] LABS: ANISOCYTOSIS 3+; PLATELET ESTIMATE NORMAL; POLYCHROMASIA 1+
[2018-07-08 07:42] LABS: BURR CELLS FEW; POIKILOCYTOSIS 1+
[2018-07-08] MEDS: albuterol 2.5 MG/3 ML nebule NEB SCH ×4 (07:48→20:11)
[2018-07-08] MEDS: budesonide 0.5mg/2ml UD nebule IH SCH ×2 (07:48→20:11)
[2018-07-08] MEDS: bisacodyl 10mg suppository rectal RC SCH (08:00)
[2018-07-08] MEDS: NUT.TX.GLUC.INTOLER,LAC-FR,SOY (GLUCERNA) 237 ML PO SCH ×3 (08:00→19:00)
[2018-07-08] MEDS: MILNACIPRAN HCL 50 MG TABLET PO SCH ×2 (08:00→22:08)
[2018-07-08] MEDS: docusate sod 100mg capsule PO SCH ×4 (08:00→22:05)
[2018-07-08] MEDS: insulin Lispro (HumaLOG) vial - multi-dose SQ SCH ×4 (09:10→22:16)
[2018-07-08] MEDS: CefTRIAXone/D5W-Rocephin 1gm 50 ML IV SCH (09:11)
[2018-07-08] MEDS: diltiazem 30mg tablet PO SCH ×3 (09:27→16:00)
[2018-07-08] MEDS: levoTHYROXINE 175mcg tablet PO SCH (09:27)
[2018-07-08] MEDS: lactobacillus rhamnosus 10,000 MMU CELLS/CAPSULE PO SCH ×2 (09:28→22:04)
[2018-07-08] MEDS: atorvastatin 20mg tablet PO SCH (09:28)
[2018-07-08] MEDS: losartan 50mg tablet PO SCH (09:28)
[2018-07-08] MEDS: pantoprazole 40mg Tablet.DR PO SCH (09:28)
[2018-07-08] MEDS: furosemide 20MG tablet PO SCH ×2 (09:29→22:05)
[2018-07-08] MEDS: ascorbic acid 500mg tablet PO SCH (09:29)
[2018-07-08] MEDS: potassium Cl 20 mEq SR tablet PO PRN ×2 (09:29→13:46)
[2018-07-08] MEDS: ferrous sulfate 325mg tablet PO SCH ×2 (09:29→22:04)
[2018-07-08] MEDS: methylPREDNISolone sod succ 125mg/2ml vial IV SCH ×2 (09:50→22:02)
[2018-07-08 12:07] VITALS: BP 120/50
[2018-07-08 17:25] VITALS: BP 115/47
[2018-07-08] MEDS ORDERED: furosemide 20 MG/2 ML vial IV ONE (17:25)
[2018-07-08 17:45] LABS: ABG BASE EXCESS -3.8 mmol/L (-2.0-3.0); ABG HCO3 20.2 mmol/L (22.0-26.0); ABG PCO2 (T) 32.4 mmHg (32.0-45.0); ABG PH (T) 7.413 (7.350-7.450); ABG PO2 (T) 149.3 mmHg (83-108); ALLEN'S TEST Positive; FCOHb 0.7 % (0.5-1.5); FLOW 10 L/min; FMetHb 0.3 % (0.3-1.12); TOTAL HEMOGLOBIN 8.5 G/dl (12.0-16.0)
[2018-07-08 18:58] LABS: TROPONIN I 0.06 NG/ML (0.0-0.05)
[2018-07-08 20:00] VITALS: BP 131/41
[2018-07-08] MEDS: Melatonin 3mg tablet PO SCH (22:04)
[2018-07-08] MEDS: HYDROcodone/acetaminophen 10/325mg tab PO PRN (22:04)
[2018-07-08] MEDS: insulin glargine (Lantus) pen - multi-dose SQ SCH (22:15)
[2018-07-09 06:17] LABS: BASOPHILS % (AUTO) 0 % (0-1); EOSINOPHILS % (AUTO) 0 % (0-6); HEMATOCRIT 25.1 % (35.0-45.0); HEMOGLOBIN 7.6 g/dl (12.0-16.0); LYMPHOCYTES # (AUTO) 0.3 X10'3 (1.1-4.8); LYMPHOCYTES % (AUTO) 1.8 % (21-51); MEAN CORPUSCULAR HEMOGLOBIN 24.5 PG (27.0-31.0); MEAN CORPUSCULAR HGB CONC 30.4 % (33.0-36.5); MEAN CORPUSCULAR VOLUME 80.7 FL (78-98); MEAN PLATELET VOLUME 7.9 FL (7.4-10.4); MONOCYTES # (AUTO) 0.5 X10'3 (0-0.9); MONOCYTES % (AUTO) 3.7 % (2-12); NEUTROPHILS % (AUTO) 94.5 % (42-75); PLATELET COUNT 189 X10'3 (140-440); RED BLOOD COUNT 3.11 X10'6 (4.20-5.60); RED CELL DISTRIBUTION WIDTH 21.4 % (11.5-14.5); WHITE BLOOD COUNT 14.8 X10'3 (4.5-11.0)
[2018-07-09 06:33] LABS: ALANINE AMINOTRANSFERASE 108 U/L (12-78); ALBUMIN 2.5 G/DL (3.4-5.0); ALBUMIN/GLOBULIN RATIO 0.7 (1.1-1.5); ALKALINE PHOSPHATASE 241 IU/L (46-116); ANION GAP 15 (8-16); ASPARTATE AMINO TRANSFERASE 106 U/L (10-37); BILIRUBIN,TOTAL 2.9 MG/DL (0.1-1.0); BLOOD UREA NITROGEN 82 MG/DL (7-18); BUN/CREATININE RATIO 30.8 (6.6-38.0); CALCIUM 8.5 MG/DL (8.5-10.1); CHLORIDE 103 MMOL/L (99-107); CREATININE 2.66 MG/DL (0.40-0.90); GLUCOSE 192 MG/DL (70-104); MAGNESIUM 2.2 MG/DL (1.5-2.4); PHOSPHORUS 5.2 MG/DL (2.3-4.5); POTASSIUM 3.4 MMOL/L (3.5-5.1); SODIUM 140 MMOL/L (135-145); TOTAL CARBON DIOXIDE 21.8 MMOL/L (24-32); TOTAL PROTEIN 6.1 G/DL (6.4-8.2); eGFR 18 ML/MIN
[2018-07-09 07:00] VITALS: BP 116/46
[2018-07-09] MEDS: budesonide 0.5mg/2ml UD nebule IH SCH ×2 (07:38→19:06)
[2018-07-09] MEDS: albuterol 2.5 MG/3 ML nebule NEB SCH ×4 (07:38→19:06)
[2018-07-09] MEDS: levoTHYROXINE 175mcg tablet PO SCH (07:48)
[2018-07-09] MEDS: CefTRIAXone/D5W-Rocephin 1gm 50 ML IV SCH (07:50)
[2018-07-09] MEDS: diltiazem 30mg tablet PO SCH ×3 (07:50→16:24)
[2018-07-09] MEDS: docusate sod 100mg capsule PO SCH ×4 (07:51→20:19)
[2018-07-09] MEDS: methylPREDNISolone sod succ 125mg/2ml vial IV SCH ×2 (07:51→20:19)
[2018-07-09] MEDS: ascorbic acid 500mg tablet PO SCH (07:52)
[2018-07-09] MEDS: losartan 50mg tablet PO SCH (07:52)
[2018-07-09] MEDS: atorvastatin 20mg tablet PO SCH (07:52)
[2018-07-09] MEDS: furosemide 20MG tablet PO SCH ×2 (07:52→20:20)
[2018-07-09] MEDS: lactobacillus rhamnosus 10,000 MMU CELLS/CAPSULE PO SCH ×2 (07:53→20:19)
[2018-07-09] MEDS: ferrous sulfate 325mg tablet PO SCH ×2 (07:53→20:19)
[2018-07-09] MEDS: pantoprazole 40mg Tablet.DR PO SCH (07:53)
[2018-07-09] MEDS: NUT.TX.GLUC.INTOLER,LAC-FR,SOY (GLUCERNA) 237 ML PO SCH ×3 (07:58→18:00)
[2018-07-09] MEDS: bisacodyl 10mg suppository rectal RC SCH (07:59)
[2018-07-09] MEDS: MILNACIPRAN HCL 50 MG TABLET PO SCH ×2 (08:00→20:47)
[2018-07-09 08:16] LABS: ANISOCYTOSIS 3+; BURR CELLS 1+; HYPOCHROMASIA 1+; PLATELET ESTIMATE NORMAL; TARGET CELLS 1+
[2018-07-09] MEDS: insulin Lispro (HumaLOG) vial - multi-dose SQ SCH ×3 (09:19→18:53)
[2018-07-09 12:14] VITALS: BP 129/39
[2018-07-09] MEDS: normal saline 1000ml 1,000 ML IV SCH (12:33)
[2018-07-09] MEDS: HYDROcodone/acetaminophen 5mg/325mg tablet PO PRN (12:33)
[2018-07-09] MEDS: nystatin 500,000 unit/5ML UD oral suspension PO SCH ×2 (12:51→20:47)
[2018-07-09 19:00] VITALS: BP 112/64
[2018-07-09] MEDS: Melatonin 3mg tablet PO SCH (20:47)
[2018-07-09] MEDS: insulin glargine (Lantus) pen - multi-dose SQ SCH (20:51)
[2018-07-09] MEDS ORDERED: potassium Cl 20 mEq SR tablet PO PRN (21:10)
[2018-07-09] MEDS ORDERED: potassium Cl 40MEQ/NS 500ml 500 ML IV PRN ×2 (21:10)
[2018-07-09] MEDS: potassium Cl 20 mEq SR tablet PO PRN (21:39)
[2018-07-10] VITALS: BP 97/39
[2018-07-10] MEDS: HYDROcodone/acetaminophen 10/325mg tab PO PRN (00:32)
[2018-07-10] MEDS: potassium Cl 20 mEq SR tablet PO PRN (03:21)
[2018-07-10 07:00] VITALS: BP 85/53
[2018-07-10] MEDS: budesonide 0.5mg/2ml UD nebule IH SCH ×2 (07:47→21:00)
[2018-07-10] MEDS: albuterol 2.5 MG/3 ML nebule NEB SCH ×4 (07:47→21:00)
[2018-07-10] MEDS: bisacodyl 10mg suppository rectal RC SCH (07:57)
[2018-07-10] MEDS: methylPREDNISolone sod succ 125mg/2ml vial IV SCH ×2 (07:57→20:15)
[2018-07-10] MEDS: CefTRIAXone/D5W-Rocephin 1gm 50 ML IV SCH (07:57)
[2018-07-10] MEDS: docusate sod 100mg capsule PO SCH ×4 (07:58→20:14)
[2018-07-10] MEDS: ferrous sulfate 325mg tablet PO SCH ×2 (07:58→20:14)
[2018-07-10] MEDS: lactobacillus rhamnosus 10,000 MMU CELLS/CAPSULE PO SCH ×2 (07:58→20:14)
[2018-07-10] MEDS: ascorbic acid 500mg tablet PO SCH (07:58)
[2018-07-10] MEDS: NUT.TX.GLUC.INTOLER,LAC-FR,SOY (GLUCERNA) 237 ML PO SCH ×3 (07:58→18:30)
[2018-07-10] MEDS: pantoprazole 40mg Tablet.DR PO SCH (07:58)
[2018-07-10] MEDS: levoTHYROXINE 175mcg tablet PO SCH (07:58)
[2018-07-10] MEDS: atorvastatin 20mg tablet PO SCH (07:58)
[2018-07-10 08:00] VITALS: BP 87/29
[2018-07-10] MEDS: furosemide 20MG tablet PO SCH ×2 (08:00→20:00)
[2018-07-10] MEDS: losartan 50mg tablet PO SCH (08:00)
[2018-07-10] MEDS: diltiazem 30mg tablet PO SCH ×4 (08:00→20:00)
[2018-07-10] MEDS: MILNACIPRAN HCL 50 MG TABLET PO SCH ×2 (08:03→21:11)
[2018-07-10] MEDS: nystatin 500,000 unit/5ML UD oral suspension PO SCH ×3 (08:41→21:10)
[2018-07-10] MEDS: insulin Lispro (HumaLOG) vial - multi-dose SQ SCH ×3 (08:44→19:36)
[2018-07-10 10:10] LABS: BASOPHILS % (AUTO) 0 % (0-1); EOSINOPHILS % (AUTO) 0 % (0-6); HEMATOCRIT 24.7 % (35.0-45.0); HEMOGLOBIN 7.6 g/dl (12.0-16.0); LYMPHOCYTES # (AUTO) 0.2 X10'3 (1.1-4.8); LYMPHOCYTES % (AUTO) 1.7 % (21-51); MEAN CORPUSCULAR HEMOGLOBIN 24.6 PG (27.0-31.0); MEAN CORPUSCULAR HGB CONC 30.7 % (33.0-36.5); MEAN CORPUSCULAR VOLUME 80.1 FL (78-98); MEAN PLATELET VOLUME 7.8 FL (7.4-10.4); MONOCYTES # (AUTO) 0.5 X10'3 (0-0.9); MONOCYTES % (AUTO) 3.6 % (2-12); NEUTROPHILS # (AUTO) 12.9 X10'3 (1.8-7.7); NEUTROPHILS % (AUTO) 94.7 % (42-75); PLATELET COUNT 241 X10'3 (140-440); RED BLOOD COUNT 3.08 X10'6 (4.20-5.60); RED CELL DISTRIBUTION WIDTH 21.5 % (11.5-14.5); WHITE BLOOD COUNT 13.6 X10'3 (4.5-11.0)
[2018-07-10 10:31] LABS: ALANINE AMINOTRANSFERASE 107 U/L (12-78); ALBUMIN 2.4 G/DL (3.4-5.0); ALBUMIN/GLOBULIN RATIO 0.7 (1.1-1.5); ALKALINE PHOSPHATASE 236 IU/L (46-116); ANION GAP 16 (8-16); ASPARTATE AMINO TRANSFERASE 89 U/L (10-37); BILIRUBIN,TOTAL 2.2 MG/DL (0.1-1.0); BLOOD UREA NITROGEN 86 MG/DL (7-18); BUN/CREATININE RATIO 29.8 (6.6-38.0); CALCIUM 7.8 MG/DL (8.5-10.1); CHLORIDE 99 MMOL/L (99-107); CREATININE 2.89 MG/DL (0.40-0.90); GLUCOSE 230 MG/DL (70-104); MAGNESIUM 1.8 MG/DL (1.5-2.4); PHOSPHORUS 5.3 MG/DL (2.3-4.5); POTASSIUM 4.3 MMOL/L (3.5-5.1); SODIUM 135 MMOL/L (135-145); TOTAL CARBON DIOXIDE 19.8 MMOL/L (24-32); eGFR 16 ML/MIN
[2018-07-10 10:36] LABS: NUCLEATED RED BLOOD CELLS 3 /100WBC (0-0); TOTAL CELLS COUNTED 100
[2018-07-10 10:37] LABS: ANISOCYTOSIS 3+; PLATELET ESTIMATE NORMAL
[2018-07-10 10:38] LABS: ACANTHOCYTES 1+; HYPOCHROMASIA 2+; SCHISTOCYTES FEW; TARGET CELLS FEW
[2018-07-10 10:40] LABS: POLYCHROMASIA 2+; TOXIC GRANULATION 1+
[2018-07-10 11:00] VITALS: BP 111/34
[2018-07-10] MEDS ORDERED: albumin (human) 25% 100ml IV 100 ML IV ONE (13:45)
[2018-07-10] MEDS ORDERED: lactulose 20gm/30ml cup PO ONE (13:50)
[2018-07-10] MEDS: azithromycin 250mg tablet PO SCH (14:01)
[2018-07-10 14:33] VITALS: BP 98/36
[2018-07-10 19:00] VITALS: BP 98/44
[2018-07-10] MEDS: Melatonin 3mg tablet PO SCH (21:10)
[2018-07-10] MEDS: insulin glargine (Lantus) pen - multi-dose SQ SCH (21:14)
[2018-07-11] VITALS: BP 105/37
[2018-07-11] MEDS: diltiazem 30mg tablet PO SCH ×4 (02:00→20:00)
[2018-07-11 07:00] VITALS: BP 103/39
[2018-07-11 07:09] LABS: OCCULT BLOOD STOOL POSITIVE (Neg)
[2018-07-11 07:29] LABS: MAGNESIUM 2.1 MG/DL (1.5-2.4); PHOSPHORUS 5.7 MG/DL (2.3-4.5)
[2018-07-11] MEDS: albuterol 2.5 MG/3 ML nebule NEB SCH ×4 (07:36→19:53)
[2018-07-11] MEDS: budesonide 0.5mg/2ml UD nebule IH SCH ×2 (07:36→19:54)
[2018-07-11] MEDS: docusate sod 100mg capsule PO SCH ×4 (08:00→21:15)
[2018-07-11] MEDS: bisacodyl 10mg suppository rectal RC SCH (08:00)
[2018-07-11] MEDS: nystatin 500,000 unit/5ML UD oral suspension PO SCH ×3 (08:00→21:14)
[2018-07-11] MEDS: methylPREDNISolone sod succ 125mg/2ml vial IV SCH (08:00)
[2018-07-11] MEDS: CefTRIAXone/D5W-Rocephin 1gm 50 ML IV SCH (08:00)
[2018-07-11] MEDS: MILNACIPRAN HCL 50 MG TABLET PO SCH ×2 (08:00→21:16)
[2018-07-11] MEDS: losartan 50mg tablet PO SCH (08:01)
[2018-07-11] MEDS: atorvastatin 20mg tablet PO SCH (08:01)
[2018-07-11] MEDS: pantoprazole 40mg Tablet.DR PO SCH (08:01)
[2018-07-11] MEDS: ferrous sulfate 325mg tablet PO SCH ×2 (08:01→21:15)
[2018-07-11] MEDS: azithromycin 250mg tablet PO SCH (08:01)
[2018-07-11] MEDS: furosemide 20MG tablet PO SCH ×2 (08:01→21:14)
[2018-07-11] MEDS: lactobacillus rhamnosus 10,000 MMU CELLS/CAPSULE PO SCH ×2 (08:02→21:15)
[2018-07-11] MEDS: levoTHYROXINE 175mcg tablet PO SCH (08:02)
[2018-07-11] MEDS: NUT.TX.GLUC.INTOLER,LAC-FR,SOY (GLUCERNA) 237 ML PO SCH ×3 (08:02→18:00)
[2018-07-11] MEDS: ascorbic acid 500mg tablet PO SCH (08:02)
[2018-07-11] MEDS: insulin Lispro (HumaLOG) vial - multi-dose SQ SCH ×3 (08:17→19:16)
[2018-07-11 11:00] VITALS: BP 104/39
[2018-07-11 13:49] VITALS: BP 91/23
[2018-07-11 19:00] VITALS: BP 108/52
[2018-07-11] MEDS: insulin glargine (Lantus) pen - multi-dose SQ SCH (21:13)
[2018-07-11] MEDS: Melatonin 3mg tablet PO SCH (21:15)
[2018-07-11] MEDS: HYDROcodone/acetaminophen 5mg/325mg tablet PO PRN (21:22)
[2018-07-12] VITALS (7 sets, daily range): BP systolic 97–121; BP diastolic 32–57
[2018-07-12] MEDS: HYDROcodone/acetaminophen 5mg/325mg tablet PO PRN (01:42)
[2018-07-12] MEDS: diltiazem 30mg tablet PO SCH ×4 (02:00→20:00)
[2018-07-12] MEDS: docusate sod 100mg capsule PO SCH ×4 (07:23→21:05)
[2018-07-12] MEDS: lactobacillus rhamnosus 10,000 MMU CELLS/CAPSULE PO SCH ×2 (07:25→21:05)
[2018-07-12] MEDS: ascorbic acid 500mg tablet PO SCH (07:25)
[2018-07-12] MEDS: azithromycin 250mg tablet PO SCH (07:25)
[2018-07-12] MEDS: levoTHYROXINE 175mcg tablet PO SCH (07:25)
[2018-07-12] MEDS: furosemide 20MG tablet PO SCH ×2 (07:25→20:00)
[2018-07-12] MEDS: nystatin 500,000 unit/5ML UD oral suspension PO SCH ×4 (07:25→21:04)
[2018-07-12] MEDS: bisacodyl 10mg suppository rectal RC SCH (07:26)
[2018-07-12] MEDS: atorvastatin 20mg tablet PO SCH (07:26)
[2018-07-12] MEDS: ferrous sulfate 325mg tablet PO SCH ×2 (07:26→21:05)
[2018-07-12] MEDS: CefTRIAXone/D5W-Rocephin 1gm 50 ML IV SCH (07:26)
[2018-07-12] MEDS: pantoprazole 40mg Tablet.DR PO SCH (07:26)
[2018-07-12] MEDS: losartan 50mg tablet PO SCH (07:30)
[2018-07-12] MEDS: MILNACIPRAN HCL 50 MG TABLET PO SCH ×2 (07:30→21:07)
[2018-07-12] MEDS: albuterol 2.5 MG/3 ML nebule NEB SCH ×4 (07:34→20:07)
[2018-07-12] MEDS: budesonide 0.5mg/2ml UD nebule IH SCH ×2 (07:34→20:07)
[2018-07-12 08:18] LABS: BASOPHILS % (AUTO) 0 % (0-1); EOSINOPHILS # (AUTO) 0.2 X10'3 (0-0.9); EOSINOPHILS % (AUTO) 1.1 % (0-6); HEMATOCRIT 25.4 % (35.0-45.0); HEMOGLOBIN 7.7 g/dl (12.0-16.0); LYMPHOCYTES # (AUTO) 0.4 X10'3 (1.1-4.8); LYMPHOCYTES % (AUTO) 2.7 % (21-51); MEAN CORPUSCULAR HEMOGLOBIN 24.7 PG (27.0-31.0); MEAN CORPUSCULAR HGB CONC 30.5 % (33.0-36.5); MEAN CORPUSCULAR VOLUME 81.1 FL (78-98); MEAN PLATELET VOLUME 8.4 FL (7.4-10.4); MONOCYTES # (AUTO) 1.4 X10'3 (0-0.9); NEUTROPHILS # (AUTO) 13.9 X10'3 (1.8-7.7); NEUTROPHILS % (AUTO) 87.2 % (42-75); PLATELET COUNT 201 X10'3 (140-440); RED BLOOD COUNT 3.13 X10'6 (4.20-5.60); RED CELL DISTRIBUTION WIDTH 21.5 % (11.5-14.5)
[2018-07-12] MEDS: NUT.TX.GLUC.INTOLER,LAC-FR,SOY (GLUCERNA) 237 ML PO SCH ×3 (08:23→17:59)
[2018-07-12 08:28] LABS: ALBUMIN 2.7 G/DL (3.4-5.0); ANION GAP 20 (8-16); BLOOD UREA NITROGEN 110 MG/DL (7-18); BUN/CREATININE RATIO 29.7 (6.6-38.0); CALCIUM 7.8 MG/DL (8.5-10.1); CHLORIDE 100 MMOL/L (99-107); GLUCOSE 129 MG/DL (70-104); SODIUM 136 MMOL/L (135-145); TOTAL CARBON DIOXIDE 15.7 MMOL/L (24-32); eGFR 12 ML/MIN
[2018-07-12 08:29] LABS: POTASSIUM 4.7 MMOL/L (3.5-5.1)
[2018-07-12 08:53] LABS: ANISOCYTOSIS 3+; NUCLEATED RED BLOOD CELLS 11 /100WBC (0-0); PLATELET ESTIMATE NORMAL; TOTAL CELLS COUNTED 100
[2018-07-12 08:54] LABS: ACANTHOCYTES FEW; BURR CELLS 2+; ELLIPTOCYTES FEW; HYPOCHROMASIA 1+; POLYCHROMASIA 2+; SCHISTOCYTES FEW
[2018-07-12 08:56] LABS: POIKILOCYTOSIS 1+
[2018-07-12] MEDS: insulin Lispro (HumaLOG) vial - multi-dose SQ SCH ×2 (08:57→13:08)
[2018-07-12] MEDS: insulin glargine (Lantus) pen - multi-dose SQ SCH (21:04)
[2018-07-12] MEDS: Melatonin 3mg tablet PO SCH (21:05)
[2018-07-13] VITALS (10 sets, daily range): BP systolic 68–128; BP diastolic 18–83
[2018-07-13] MEDS ORDERED: furosemide 20MG tablet PO ONE (00:10)
[2018-07-13 00:55] LABS: ABG BASE EXCESS -14.6 mmol/L (-2.0-3.0); ABG HCO3 10.6 mmol/L (22.0-26.0); ABG OXYGEN SATURATION 97.7 % (95-98); ABG PCO2 (T) 23.6 mmHg (32.0-45.0); ABG PH (T) 7.273 (7.350-7.450); ABG PO2 (T) 112.6 mmHg (83-108); FCOHb 0.7 % (0.5-1.5); FMetHb 0.4 % (0.3-1.12); FO2Hb 96.6 % (94-100); MINUTE VOLUME 12 L/min; PATIENT TEMPERATURE 37.4; RESPIRATORY RATE 16 b/min; RESPIRATORY RATE (OBSERVED) 20 b/min
[2018-07-13] MEDS: diltiazem 30mg tablet PO SCH ×4 (02:00→20:00)
[2018-07-13] MEDS: budesonide 0.5mg/2ml UD nebule IH SCH ×2 (07:15→20:00)
[2018-07-13] MEDS: albuterol 2.5 MG/3 ML nebule NEB SCH ×4 (07:15→19:00)
[2018-07-13] MEDS: levoTHYROXINE 175mcg tablet PO SCH (07:30)
[2018-07-13] MEDS: CefTRIAXone/D5W-Rocephin 1gm 50 ML IV SCH (07:58)
[2018-07-13] MEDS: losartan 50mg tablet PO SCH (08:00)
[2018-07-13] MEDS: NUT.TX.GLUC.INTOLER,LAC-FR,SOY (GLUCERNA) 237 ML PO SCH ×3 (08:00→18:00)
[2018-07-13] MEDS: MILNACIPRAN HCL 50 MG TABLET PO SCH ×2 (08:00→21:00)
[2018-07-13] MEDS: nystatin 500,000 unit/5ML UD oral suspension PO SCH ×3 (08:00→21:00)
[2018-07-13] MEDS: ascorbic acid 500mg tablet PO SCH (08:00)
[2018-07-13] MEDS: furosemide 20MG tablet PO SCH ×2 (08:00→20:00)
[2018-07-13] MEDS: atorvastatin 20mg tablet PO SCH (08:00)
[2018-07-13] MEDS: ferrous sulfate 325mg tablet PO SCH ×2 (08:00→20:00)
[2018-07-13] MEDS: lactobacillus rhamnosus 10,000 MMU CELLS/CAPSULE PO SCH ×2 (08:00→20:00)
[2018-07-13] MEDS: bisacodyl 10mg suppository rectal RC SCH (08:00)
[2018-07-13] MEDS: docusate sod 100mg capsule PO SCH ×4 (08:00→20:00)
[2018-07-13] MEDS: azithromycin 250mg tablet PO SCH (08:00)
[2018-07-13] MEDS: pantoprazole 40mg Tablet.DR PO SCH (08:00)
[2018-07-13 12:51] LABS: ALBUMIN 2.6 G/DL (3.4-5.0); ANION GAP 31 (8-16); BLOOD UREA NITROGEN 123 MG/DL (7-18); BUN/CREATININE RATIO 25.1 (6.6-38.0); CALCIUM 7.8 MG/DL (8.5-10.1); CHLORIDE 99 MMOL/L (99-107); GLUCOSE 69 MG/DL (70-104); SODIUM 138 MMOL/L (135-145); eGFR 9 ML/MIN
[2018-07-13 12:55] LABS: BASOPHILS % (AUTO) 0 % (0-1); EOSINOPHILS % (AUTO) 0 % (0-6); HEMATOCRIT 25.5 % (35.0-45.0); HEMOGLOBIN 7.5 g/dl (12.0-16.0); LYMPHOCYTES # (AUTO) 0.5 X10'3 (1.1-4.8); MEAN CORPUSCULAR HEMOGLOBIN 24.1 PG (27.0-31.0); MEAN CORPUSCULAR HGB CONC 29.3 % (33.0-36.5); MEAN CORPUSCULAR VOLUME 82.2 FL (78-98); MEAN PLATELET VOLUME 8.5 FL (7.4-10.4); MONOCYTES # (AUTO) 1.4 X10'3 (0-0.9); MONOCYTES % (AUTO) 5.2 % (2-12); NEUTROPHILS # (AUTO) 24.1 X10'3 (1.8-7.7); NEUTROPHILS % (AUTO) 92.8 % (42-75); PLATELET COUNT 166 X10'3 (140-440); RED CELL DISTRIBUTION WIDTH 22.6 % (11.5-14.5)
[2018-07-13] MEDS ORDERED: furosemide 20 MG/2 ML vial IV ONE (12:55)
[2018-07-13 13:04] LABS: POTASSIUM 5.9 MMOL/L (3.5-5.1)
[2018-07-13 13:10] LABS: ABG BASE EXCESS -19.8 mmol/L (-2.0-3.0); ABG HCO3 6.9 mmol/L (22.0-26.0); ABG OXYGEN SATURATION 96.9 % (95-98); ABG PCO2 (T) 19.2 mmHg (32.0-45.0); ABG PH (T) 7.173 (7.350-7.450); ABG PO2 (T) 107.6 mmHg (83-108); ALLEN'S TEST Positive; FCOHb 0.8 % (0.5-1.5); FLOW 35 L/min; FMetHb 0.3 % (0.3-1.12); FO2Hb 95.8 % (94-100); RESPIRATORY RATE 16 b/min; TOTAL HEMOGLOBIN 8.3 G/dl (12.0-16.0)
[2018-07-13 13:15] LABS: TOTAL CARBON DIOXIDE 8.2 MMOL/L (24-32)
[2018-07-13 13:28] LABS: ANISOCYTOSIS 3+; NUCLEATED RED BLOOD CELLS 9 /100WBC (0-0); PLATELET ESTIMATE NORMAL; TOTAL CELLS COUNTED 100
[2018-07-13 13:29] LABS: HYPOCHROMASIA 1+; POLYCHROMASIA 2+
[2018-07-13] MEDS: Melatonin 3mg tablet PO SCH (21:00)
[2018-07-13] MEDS ORDERED: morphine 10mg/ml inj. IV PRN ×2 (21:45→21:55)
[2018-07-13] MEDS ORDERED: LORazepam 2 mg/ml vial IV PRN (21:45)
== END 2018-07-14 01:00 | disposition expired | DRG 871 ==
LOC: ER 16:14 → ED HOLD 20:46 → SUR 3N 22:10 → PCU 3S 07-13 09:29
PROVIDERS: ADMIT Family Medicine; ATTEND Family Medicine
PROC: 5A09357 Assistance with Respiratory Ventilation, Less than 24 Consecutive Hours, Continuous Positive Airway Pressure (ICD-10-PCS; principal; 2018-07-10)
PROC: 5A09357 Assistance with Respiratory Ventilation, Less than 24 Consecutive Hours, Continuous Positive Airway Pressure (ICD-10-PCS; 2018-07-12)
PROC: 5A09357 Assistance with Respiratory Ventilation, Less than 24 Consecutive Hours, Continuous Positive Airway Pressure (ICD-10-PCS; 2018-07-13)
DX: A41.9 Sepsis, unspecified organism (principal); I50.33 Acute on chronic diastolic (congestive) heart failure; I26.99 Other pulmonary embolism without acute cor pulmonale; J18.9 Pneumonia, unspecified organism; E46 Unspecified protein-calorie malnutrition; Z68.43 Body mass index [BMI] 50.0-59.9, adult; E87.1 Hypo-osmolality and hyponatremia; I13.0 Hypertensive heart and chronic kidney disease with heart failure and stage 1 through stage 4 chronic kidney disease, or unspecified chronic kidney disease; J44.1 Chronic obstructive pulmonary disease with (acute) exacerbation; K92.2 Gastrointestinal hemorrhage, unspecified; N17.9 Acute kidney failure, unspecified; N39.0 Urinary tract infection, site not specified; J44.0 Chronic obstructive pulmonary disease with (acute) lower respiratory infection; B96.20 Unspecified Escherichia coli [E. coli] as the cause of diseases classified elsewhere; E03.9 Hypothyroidism, unspecified; E11.22 Type 2 diabetes mellitus with diabetic chronic kidney disease; E66.9 Obesity, unspecified; E78.00 Pure hypercholesterolemia, unspecified; E78.5 Hyperlipidemia, unspecified; E86.0 Dehydration; E87.5 Hyperkalemia; G47.33 Obstructive sleep apnea (adult) (pediatric); I08.1 Rheumatic disorders of both mitral and tricuspid valves; I25.10 Atherosclerotic heart disease of native coronary artery without angina pectoris; I27.20 Pulmonary hypertension, unspecified; I48.0 Paroxysmal atrial fibrillation; M19.90 Unspecified osteoarthritis, unspecified site; M79.7 Fibromyalgia; Z66 Do not resuscitate; Z51.5 Encounter for palliative care; I95.9 Hypotension, unspecified; D50.0 Iron deficiency anemia secondary to blood loss (chronic); N18.3 Chronic kidney disease, stage 3 (moderate); T38.0X5A Adverse effect of glucocorticoids and synthetic analogues, initial encounter; Z90.49 Acquired absence of other specified parts of digestive tract; Z95.0 Presence of cardiac pacemaker; Z88.0 Allergy status to penicillin; Z88.2 Allergy status to sulfonamides; Z88.1 Allergy status to other antibiotic agents; Z88.8 Allergy status to other drugs, medicaments and biological substances; Z74.01 Bed confinement status; Z79.01 Long term (current) use of anticoagulants; Z79.4 Long term (current) use of insulin; Z79.82 Long term (current) use of aspirin; Z79.890 Hormone replacement therapy; Z82.49 Family history of ischemic heart disease and other diseases of the circulatory system; Z83.3 Family history of diabetes mellitus; Z82.3 Family history of stroke; Z80.8 Family history of malignant neoplasm of other organs or systems; Y92.89 Other specified places as the place of occurrence of the external cause
CPT/HCPCS: 36415; 36600; 71045; 71250; 80048; 80053; 81001; 82272; 82728; 82803; 82948; 83036; 83540; 83550; 83605; 83690; 83735; 83880; 84100; 84145; 84443; 84484; 85018; 85025; 85610; 85730; 86885; 86900; 86901; 87040; 87070; 87077; 87088; 87186; 93005; 93308; 94640; 94660; 94760; 96365; 96367; 96374; 96375; 97110; 97161; 97530; 99285; G0378; J0456; J0692; J0696; J1815; J1940; J2060; J2270; J2930; J7030; J7626; P9047